=== PATIENT | female | born 1995 | race Caucasian/White ===

== ENCOUNTER 2024-12-03 08:55 | Outpatient (AMB) | payer MEDICAID, SELFPAY ==
--- NOTE | 2024-12-03 09:26 | AMB.OBINITIA ---
Vital Signs 12/03/24 09:58 Height 1.55 m Height Method Stated Weight 92.76 kg Weight Measurement Method Standing Scale BMI 38.6 BP 110/67 Blood Pressure Source Automatic Cuff Blood Pressure Location Left Upper Arm Position Sitting Respiration 16 Pulse 80 Pulse Source Monitor Temp 98 F Temp Source Oral Pulse Oximetry (%) 96 Oxygen Delivery Method Room Air Allergies/Home Meds Allergies & Medications Allergies No Known Allergies Allergy (Verified 12/03/24 09:59) Medication Reconciliation No Known Home Medications 12/03/24 [History Confirmed 12/03/24] Intake Visit Data Collection New Patient or Established: New Patient (never been to [facility]) Reason for Visit:: INITIAL CARE Seen by Clinical Staff ONLY (RN/MA): No Overcoil Stepper Required: No Do You Feel Safe at Home: Yes Authorities Contacted: N/A PCP or OBGYN visit in last 3 months: Yes Hx Now: Yes Are you currently on any form of Control: No Last menstrual period: 05/10/24 Pain Present Currently: No Pain Scale Used: Germain-Pérez/Numerical Pain scale:: 0 Smoking Status Smoking Status: Never smoker Questionnaires Covid-19 Vaccine Questionnaire Has patient been vacinated for Covid-19 Have you been vacinated for Covid-19: No PHQ-9 PHQ-2 Over the last 2 weeks, how often have you been bothered by any of the following problems? 1. Little interest or pleasure in doing things: not at all 2. Feeling down, depressed, or hopeless: not at all Total score: 0 PHQ-9 3. Trouble falling or staying asleep, or sleeping too much: Not at all 4. Feeling tired or having little energy: Not at all 5. Poor appetite or overeating: Not at all 6. Feeling bad about yourself - or that you are a failure or have let yourself or your family down: Not at all 7. Trouble concentrating on things, such as reading the newspaper or watching television: Not at all 8. Moving or speaking so slowly that other people could have noticed? - Or the opposite - being so fidgety or restless that you have been moving around a lot more than usual: not at all 9. Thoughts that you would be better off or of hurting yourself in some way: Not at all Total score: 0 Source: Developed by Drs. Shamir White, Anahi Roque, Lito Yu and colleagues, with an educational annabel from [employer]. Depression screen completed yes Social History Living Situation History Marital Status: Lives With: Family Housing: House Tobacco History Smoking Status: Never smoker Second Hand Smoke Exposure: No Alcohol History Alcohol Intake: Never Domestic Abuse History Do You Feel Safe at Home: Yes History of Present Illness HPI Narrative 29-year-old 3 para 2 for OBI. Patient is a transfer from [facility] in [place]. Last. Was May 10, 2024. Estimated due date based on LMP . Patient's only problem the so far was a UTI. She was treated with Macrobid. Patient denies social habits. Denies bleeding. Denies chronic illness. Patient reports that her labs have been normal. They did not do a 1 hour yet. GC and Chlamydia were negative. Her HIV was negative and RPR negative. OB Initial Visit OB Flowsheet OB Flowsheet Initial Weight: Not Recorded Date <del>?</del> EGA Weight BP Alb Glu CTX Pres Fundal ht FHR Mov Dilation Station Effacement Hx Notes Visit Note 12/03/24 <del>?</del> 29w 4d 92.76 kg 110/67 absent unknown 29 134 active 29-year-old 3 para 2 for OBI. She brought partial records. Last period was May 10, 2024. An estimated due date based on that February 15, 2025. Patient reports movement. Denies bleeding, leaking, contractions. Treated for UTI with . Patient declined Tdap Schedule MFM appointment for anatomy scan. 1 hour glucose with OB panel today. Discussed labor precautions. Continue prenatals. Patient needs NIPT and carrier screens at her next visit Menstrual History Menstrual reliability: definite Flow: normal Menstrual regularity: regular Monthly: Yes Age at menarche: 12 On control pills at conception: No Associated symptoms (LMP): Reports fatigue and breast tenderness OB History : 3 Para: 2 # of Living Children: 2 Delivery History 1st : Child's name: BATOOL date: 06/23/14 sex: male Gestational age at delivery (weeks): 41 Delivery type: vaginal Delivery complications: NONE History of depression before or after : No 2nd : Child's name: CASSANDRA date: 07/30/20 sex: female Gestational age at delivery (weeks): 40 Delivery type: vaginal Delivery complications: NONE History of depression before or after : No Infection History & Risk Evaluation History of STDs: none Genetic Screening & History Genetic Screening/Teratology Counseling - Includes patient, baby's father, or anyone in either family with: 1. Patient's age 35 years or older as of estimated date of delivery: No 2. Thalassemia (Barbadian, Wolof, Mediterranean, or Background); MCV less than 80: No 3. Neural Tube Defect (Meningomyelocele, Spina Bifida, or Anencephaly): No 4. Congenital Heart Defect: No 5. Down Syndrome: No 6. Cameron-Sachs (Ashkenazi Pentecostal, Cajun, Telugu [place]): No 7. Aguilar Disease (Ashkenazi Pentecostal): No 8. Familial Dysautonomia (Ashkenazi Pentecostal): No 9. Sickle Cell Disease or Trait (): No 10. Hemophilia or other blood disorders: No 11. Muscular Dystrophy: No 12. Cystic Fibrosis: No 13. [place]'s Chorea: No 14. Mental Retardation/Autism: No 15. Other inherited genetic or chromosomal disorder: No 16. Maternal Metabolic Disorder (EG,TYPE 1 Diabetes, PKU): No 17. Patient or baby's father had a child with defects not listed above: No 18. Recurrent loss or a stillbirth: No 19. Medications (including supplements, vitamins, herbs or otc drugs)/illicit/recreational drugs/alcohol since last menstrual period: No 20. Any other: No Infection History 1. Live with someone with TB or exposed to TB: No 2. Rash or viral illness since last menstrual period: No 3. Hepatitis B,C: No Other (see comments) Source: [employer] Review of Systems Review of Systems Systems Reviewed: All systems reviewed, normal except as documented Constitutional Constitutional: Reports fatigue Endocrine Endocrine: Reports fatigue Exam General Limitations: no limitations General Appearance: alert, in no apparent distress, comfortable, cooperative, healthy appearing, well developed and well groomed Head Head exam: atraumatic, normocephalic and normal inspection Chest Chest inspection: Present normal inspection and symmetric chest wall rise Resp Respiratory exam: Present normal lung sounds bilaterally Card Cardiovascular exam: Present regular rate, normal rhythm and normal heart sounds Abdominal Abdominal exam: Present soft and normal bowel sounds Psych Psychiatric exam: Present normal affect and normal mood Office Procedures OB Clinic LOC & Office Proc's Nursing/Assessment Patient Status: Established Patient OB Clinic Nursing Assessment: Medication Reconciliation, Update PMH in EMR and Vital Signs OB Clinic Coordination of Care: Complex Care and Chronic Disease 1-5, Consent,records obtained, informed consent, Education Simp Pt/Fam, Lab and Imaging orders, Results/Orders obtained and Staff clarify orders Special Needs: Heart tones Established Patient Charge Established Patient Point Assignment: 135 Established Patient Point Charge: EP Level 4 (120-155) Assessment & Plan Diagnosis / Problem List (1) High-risk : Status: Acute Qualifiers: Trimester: third trimester Qualified Code(s): O09.93 - Supervision of high risk , unspecified, third trimester (2) Encounter for supervision of high risk in third trimester, antepartum: Status: Acute Plan OB panel with 1 hour GTT. Schedule [facility] ultrasound for anatomy scan. Discussed labor precautions. I offered Tdap, patient declined. Continue vitamins. Increase fluids return in 2 to 3 weeks OB check Additional Plan Follow Up: 3 Weeks (obc)
[2024-12-03 09:58] VITALS: BP 110/67; PULSE 80; RESP 16; TEMP 36.6; O2SAT 96; BMI 38.6
== END 2024-12-03 10:14 | disposition home or self-care (01) ==
LOC: HODSOBC 08:55
PROVIDERS: Supervising Provider Advanced Practice Midwife; Visit Provider Advanced Practice Midwife
DX: O09.93 Supervision of high risk pregnancy, unspecified, third trimester (principal); Z3A.29 29 weeks gestation of pregnancy
CPT/HCPCS: 99214; G0463

== ENCOUNTER 2024-12-21 15:17 | Outpatient (AMB) | payer MEDICAID, SELFPAY ==
[2024-12-21 15:42] VITALS: BP 104/69; PULSE 99; RESP 18; TEMP 36.7; O2SAT 98; BMI 39.1
--- NOTE | 2024-12-21 15:42 | AMB.OBVISIT ---
Vital Signs 12/21/24 15:42 Height 1.55 m Height Method Stated Weight 94.064 kg Weight Measurement Method Standing Scale BMI 39.1 BP 104/69 Blood Pressure Source Automatic Cuff Blood Pressure Location Left Upper Arm Position Sitting Respiration 18 Pulse 99 Pulse Source Monitor Temp 98.0 F Temp Source Oral Pulse Oximetry (%) 98 Oxygen Delivery Method Room Air Allergies/Home Meds Allergies & Medications Allergies No Known Allergies Allergy (Verified 12/21/24 15:44) Medication Reconciliation No Known Home Medications 12/03/24 [History Confirmed 12/21/24] Intake Visit Data Collection New Patient or Established: Established Patient (seen at [facility] within 3 years) Reason for Visit:: CARE Seen by Clinical Staff ONLY (RN/MA): No Six Sigma Black Belt Engineer Required: No Do You Feel Safe at Home: Yes Authorities Contacted: N/A PCP or OBGYN visit in last 3 months: Yes Hx Now: Yes Are you currently on any form of Control: No Pain Present Currently: No Pain Scale Used: Germain-Pérez/Numerical Pain scale:: 0 Smoking Status Smoking Status: Never smoker Questionnaires Covid-19 Vaccine Questionnaire Has patient been vacinated for Covid-19 Have you been vacinated for Covid-19: Yes PHQ-9 PHQ-2 Over the last 2 weeks, how often have you been bothered by any of the following problems? 1. Little interest or pleasure in doing things: not at all 2. Feeling down, depressed, or hopeless: not at all Total score: 0 PHQ-9 3. Trouble falling or staying asleep, or sleeping too much: Not at all 4. Feeling tired or having little energy: Not at all 5. Poor appetite or overeating: Not at all 6. Feeling bad about yourself - or that you are a failure or have let yourself or your family down: Not at all 7. Trouble concentrating on things, such as reading the newspaper or watching television: Not at all 8. Moving or speaking so slowly that other people could have noticed? - Or the opposite - being so fidgety or restless that you have been moving around a lot more than usual: not at all 9. Thoughts that you would be better off or of hurting yourself in some way: Not at all Total score: 0 Source: Developed by Drs. Shamir White, Anahi Roque, Lito Yu and colleagues, with an educational annabel from [employer]. Depression screen completed yes Social History Living Situation History Lives With: Family Housing: House Tobacco History Smoking Status: Never smoker Second Hand Smoke Exposure: No Alcohol History Alcohol Intake: Never Domestic Abuse History Do You Feel Safe at Home: Yes Care OB Visit Log OB Flowsheet Initial Weight: Not Recorded Date <del>?</del> EGA Weight BP Alb Glu CTX Pres Fundal ht FHR Mov Dilation Station Effacement Hx Notes Visit Note 12/03/24 <del>?</del> 29w 4d 92.76 kg 110/67 absent unknown 29 134 active 29-year-old 3 para 2 for OBI. She brought partial records. Last period was May 10, 2024. An estimated due date based on that February 15, 2025. Patient reports movement. Denies bleeding, leaking, contractions. Treated for UTI with . Patient declined Tdap Schedule MFM appointment for anatomy scan. 1 hour glucose with OB panel today. Discussed labor precautions. Continue prenatals. Patient needs NIPT and carrier screens at her next visit 12/21/24 <del>?</del> 32w 1d 94.064 kg 104/69 absent cephalic 32 145 active Reports good movement. Denies leaking, bleeding, contractions. Patient has her MFM appointment scheduled for December 29. Tdap today. Discussed labor precautions. Discussed diet and weight. Increase fluids. Keep maternal- medicine sono appointment for December 29. Return in 2 weeks OB check, 3 hr gtt VIVIAN Calculator Estimated Delivery Date Method Current WG Current Estimate 02/14/25 LMP (Certain) 32w 1d Notes Visit Date: 12/21/24 Last Updated by: Lydia Couch CNM 1 hr gtt: 143, HBSAG: -, HCV-, HIV-, GC/CT-, AB+. abs-, RPR::NR, RUB NI< /268A1: 5.4 Visit Date: 12/03/24 Last Updated by: Lydia Couch CNM 29 yo . LMP; 05/10/24. EDC: 02/15/25 Office Procedures OB Clinic LOC & Office Proc's Nursing/Assessment Patient Status: Established Patient OB Clinic Nursing Assessment: Medication Reconciliation, Update PMH in EMR and Vital Signs OB Clinic Coordination of Care: Complex Care and Chronic Disease 1-5, Consent,records obtained, informed consent, Education Simp Pt/Fam, 1 Ins Authorization, Lab and Imaging orders, Results/Orders obtained and Staff clarify orders Special Needs: Heart tones Established Patient Charge Established Patient Point Assignment: 150 Established Patient Point Charge: EP Level 4 (120-155) Immunizations diphth,pertus(acell),tetanus 2.5 Lf unit-8 mcg-5 Lf/0.5mL IM syringe Performing Provider: Lydia Couch CNM Performing Location: [facility] Administered by: Acacia Egan MA on 12/21/24 16:24 Dose Route Admin Location Dispensed Lot Number Expiration Date Package NDC NDC Aircraft Maintenance Supervisor 0.5 mL IM Left Deltoid 0.5 mL [id number] 02/04/27 53605-707-56 [id number] [employer] VIS Given Date VIS Provided VIS Publication Date 12/21/24 Single Vaccine 24 Eligibility Eligibility Date Funding Source Public Non-[facility] Assessment & Plan Diagnosis / Problem List (1) Encounter for supervision of high risk in third trimester, antepartum: Status: Acute Plan Tdap today. Schedule 3-hour GTT. Discussed diet and weight. Increase exercise. Discussed labor precautions. [facility] appointment December 29. Increase fluids. Return in 2 weeks OB check Additional Plan Follow Up: 2 Weeks (obc)
== END 2024-12-21 16:19 | disposition home or self-care (01) ==
LOC: HODSOBC 15:17
PROVIDERS: Supervising Provider Advanced Practice Midwife; Visit Provider Advanced Practice Midwife
DX: O09.93 Supervision of high risk pregnancy, unspecified, third trimester (principal); Z3A.32 32 weeks gestation of pregnancy; Z23 Encounter for immunization
CPT/HCPCS: 90471; 90715; 99214; G0463

== ENCOUNTER 2024-12-29 16:49 | Observation (INO) | payer MEDICAID, SELFPAY ==
[2024-12-29] VITALS (64 sets, daily range): BP systolic 111–114; BP diastolic 55–69; PULSE 87–117; RESP 16–100; TEMP 36.8–36.9; O2SAT 90–100; BMI 39.2
[2024-12-29] MEDS: BETAMET ACET/BETAMET NA PH (Celestone) 6 MG/ML VIAL 12 MG IM (17:32)
[2024-12-29] MEDS: RINGERS LACTATED 1000 ML 1,000 ML 999 ML IV (17:33)
[2024-12-29] MEDS: RINGERS LACTATED 1000 ML 1,000 ML 125 ML IV (18:39)
[2024-12-30] VITALS (157 sets, daily range): BP systolic 99–191; BP diastolic 54–88; PULSE 82–230; RESP 18; TEMP 36.8–36.9; O2SAT 93–100
--- NOTE | 2024-12-30 06:30 | XR_ITS ---
Examination: age Limited TECHNIQUE: Limited transabdominal sonographic images pelvis Date and time: December 30, 2024, 0753 hours INDICATIONS: Leaking amniotic fluid today. FINDINGS: Amniotic fluid index 10.0 cm Cardiac motion 124 BPM IMPRESSION: Amniotic fluid index 10.0 cm
[2024-12-30] MEDS: BETAMET ACET/BETAMET NA PH (Celestone) 6 MG/ML VIAL 12 MG IM (11:02)
--- NOTE | 2024-12-30 12:36 | PD.LDPN ---
Documentation for date of: 12/30/24 OB Labor Progress Note Pain Control Comments: Patient admitted from [facility] for low DIMA for kept overnight given IV fluids repeat DIMA 10. Patient ready to go home. Given betamethasone zone x 2. She is 33 2/7 weeks Pelvic Exam Amniotic membrane status: Intact Contractions Monitor mode: External Contraction frequency: none Contraction intensity: Mild Status status: Category l Assessment and Plan Comments: Patient admitted for borderline DIMA. IV fluids given. DIMA is 10. Discharge home at this time.
--- NOTE | 2024-12-30 12:37 | ESDS_ITS ---
DS: Providers Provider Date of admission: 12/29/24 16:49 Primary care physician: Physician No Primary/Family Admitting Provider: Miguel Royal MD Attending Provider on Admission: Miguel Royal MD Attending Provider on DC: Bhavani Rod MD (OB Clinic) Discharging Provider: Bhavani Rod MD (OB Clinic) Anticipated date of discharge: 12/30/24 DS: Diagnosis Discharge Diagnosis (1) Encounter for supervision of high risk in third trimester, antepartum: Status: Acute Assessment & Plan: Admitted at 33-2/7 weeks for low DIMA. Given IV fluids and betamethasone x 2. Discharged home after admitting the patient for observation for proximately 24 hours. Follow-up with Lydia next week in the clinic. (2) Oligohydramnios antepartum: Status: Acute Assessment & Plan: DIMA improved from 4 to 10 after IV hydration.. Problem List Completed Was Problem List Reviewed/Reconciled?: Yes Summary/Hosp Course Brief History: Patient is a 29-year-old G3, P2 admitted from the [facility] office for borderline oligohydramnios at 33-2/7 weeks.. She was admitted by Dr. Royal. Please see history and physical for further details. She was kept overnight and given IV fluids. She had betamethasone x 2 given. A repeat ultrasound revealed an DIMA of 10. Patient was discharged home hospital day #1 in stable condition. Status at Discharge Functional status at discharge: independent ambulation Overall status at discharge: patient is back to baseline Time Spent with Patient Time attestation: Total time spent providing and/or coordinating discharge services: Time spent: Less than 30 minutes Specific discharge activities: Activity as tolerated. Follow-up with Lydia on Saturday for a routine OB appointment. Exam Vital Signs Temp Pulse Resp BP Pulse Ox O2 Del Method 98.2 F 96 18 105/54 L 99 Room Air 12/30/24 07:19 12/30/24 12:10 12/30/24 04:10 12/30/24 12:10 12/30/24 12:23 12/30/24 04:10 Narrative Exam Patient is alert oriented x 3 in no apparent distress fundus is firm fundal height is large approximately measuring 36 weeks. Nontender. Extremities show no significant edema or erythema. Discharge Plan Plan Patient Disposition: HOME (Self Care) Disposition Comment: Stable Prescriptions/Referrals Prescriptions/Med Rec: No Action No Known Home Medications Referrals: No Primary/Family,Physician [Primary Care Provider] Patient/Caregiver Discharge Instructions Discharge Activity: activity as tolerated Other Discharge Activity Instructions:: Return to clinic to see Lydia next week. Other Discharge Diet Instructions: Regular diet. Push oral fluids. Education Materials: Oligohydramnios Print Language: Indonesian Activity Restrictions/Additional Instructions: Activity as tolerated. Stand Alone Forms: [employer] Award Info., Patient Portal Info Letter, Work/Release Restrictions Discharge Order Discharge Orders: Discharge (Routine); Ordered 12/30/24 Ordered By: Bhavani Rod (OB Clinic) Planned Discharge Date 12/30/24 (2) Oligohydramnios antepartum Qualifiers: Fetus number: single or unspecified fetus Qualified Code(s): O41.00X0 - Oligohydramnios, unspecified trimester, not applicable or unspecified
== END 2024-12-30 12:53 | disposition home or self-care (01) ==
PROVIDERS: Admitting Provider Obstetrics & Gynecology; Visit Provider Obstetrics & Gynecology
DX: O09.93 Supervision of high risk pregnancy, unspecified, third trimester (principal); O41.03X0 Oligohydramnios, third trimester, not applicable or unspecified; Z3A.33 33 weeks gestation of pregnancy
CPT/HCPCS: 59025; 59899; 76815; 96372; J0702; J7120

== ENCOUNTER 2025-01-04 14:47 | Outpatient (AMB) | payer MEDICAID, SELFPAY ==
--- NOTE | 2025-01-04 15:33 | AMB.OBVISIT ---
Vital Signs 01/04/25 15:34 Height 1.55 m Height Method Stated Weight 94.12 kg Weight Measurement Method Standing Scale BMI 39.2 BP 116/76 Blood Pressure Source Automatic Cuff Blood Pressure Location Left Upper Arm Position Sitting Respiration 18 Pulse 99 Pulse Source Monitor Temp 98 F Temp Source Oral Pulse Oximetry (%) 96 Oxygen Delivery Method Room Air Allergies/Home Meds Allergies & Medications Allergies No Known Allergies Allergy (Verified 01/04/25 15:34) Medication Reconciliation No Known Home Medications 12/03/24 [History Confirmed 01/04/25] Intake Visit Data Collection New Patient or Established: Established Patient (seen at [facility] within 3 years) Reason for Visit:: CARE Seen by Clinical Staff ONLY (RN/MA): No Weblogic Administrator Required: No Do You Feel Safe at Home: Yes Authorities Contacted: N/A PCP or OBGYN visit in last 3 months: Yes Hx Now: Yes Are you currently on any form of Control: No Pain Present Currently: No Pain Scale Used: Germain-Pérez/Numerical Pain scale:: 0 Smoking Status Smoking Status: Never smoker Questionnaires Covid-19 Vaccine Questionnaire Has patient been vacinated for Covid-19 Have you been vacinated for Covid-19: Yes PHQ-9 PHQ-2 Over the last 2 weeks, how often have you been bothered by any of the following problems? 1. Little interest or pleasure in doing things: not at all 2. Feeling down, depressed, or hopeless: not at all Total score: 0 PHQ-9 3. Trouble falling or staying asleep, or sleeping too much: Not at all 4. Feeling tired or having little energy: Not at all 5. Poor appetite or overeating: Not at all 6. Feeling bad about yourself - or that you are a failure or have let yourself or your family down: Not at all 7. Trouble concentrating on things, such as reading the newspaper or watching television: Not at all 8. Moving or speaking so slowly that other people could have noticed? - Or the opposite - being so fidgety or restless that you have been moving around a lot more than usual: not at all 9. Thoughts that you would be better off or of hurting yourself in some way: Not at all Total score: 0 Source: Developed by Drs. Shamir L. Anahi White Kurt Kroenke and colleagues, with an educational annabel from [employer]. Depression screen completed yes Social History Living Situation History Lives With: Family Housing: House Tobacco History Smoking Status: Never smoker Second Hand Smoke Exposure: No Alcohol History Alcohol Intake: Never Domestic Abuse History Do You Feel Safe at Home: Yes Care OB Visit Log OB Flowsheet Initial Weight: Not Recorded Date <del>?</del> EGA Weight BP Alb Glu CTX Pres Fundal ht FHR Mov Dilation Station Effacement Hx Notes Visit Note 12/03/24 <del>?</del> 29w 4d 92.76 kg 110/67 absent unknown 29 134 active 29-year-old 3 para 2 for OBI. She brought partial records. Last period was May 10, 2024. An estimated due date based on that February 15, 2025. Patient reports movement. Denies bleeding, leaking, contractions. Treated for UTI with . Patient declined Tdap Schedule MFM appointment for anatomy scan. 1 hour glucose with OB panel today. Discussed labor precautions. Continue prenatals. Patient needs NIPT and carrier screens at her next visit 12/21/24 <del>?</del> 32w 1d 94.064 kg 104/69 absent cephalic 32 145 active Reports good movement. Denies leaking, bleeding, contractions. Patient has her MFM appointment scheduled for December 29. Tdap today. Discussed labor precautions. Discussed diet and weight. Increase fluids. Keep maternal- medicine sono appointment for December 29. Return in 2 weeks OB check, 3 hr gtt 01/04/25 <del>?</del> 34w 1d 94.12 kg 116/76 occasional cephalic 34 145 active Reports good movement. Denies labor complaints. Denies leaking, bleeding, contractions. Discussed ultrasound findings with patient. Patient will go tomorrow to repeat 3-hour GTT. Patient scheduled for repeat NST BPP tomorrow. Discussed labor precautions. Discussed kick count and activity. Discussed dates. Patient will return in a week for GBS. VIVIAN Calculator Estimated Delivery Date Method Current WG Current Estimate 02/14/25 LMP (Certain) 34w 1d Other Estimates 02/14/25 Ultrasound #1 34w 1d 02/14/25 Manual 34w 1d final vivian Notes Visit Date: 01/04/25 Last Updated by: Lydia Couch CNM [facility] sono12/29/24: IUP: 33w2.DIMA; 4.3. EFW: 96%. f/u sono 12/30: after IV hydration: DIMA:10 NIPT: neg/male Visit Date: 12/21/24 Last Updated by: Lydia Couch CNM 1 hr gtt: 143, HBSAG: -, HCV-, HIV-, GC/CT-, AB+. abs-, RPR::NR, RUB NI< /268A1: 5.4 Visit Date: 12/03/24 Last Updated by: Lydia Couch CNM 29 yo . LMP; 05/10/24. EDC: 02/15/25 Office Procedures OBC Clinic LOC & Office Proc's Nursing/Assessment Patient Status: Established Patient OB Clinic Nursing Assessment: Medication Reconciliation, Update PMH in EMR and Vital Signs OB Clinic Coordination of Care: Complex Care and Chronic Disease 1-5, Consent,records obtained, informed consent, Education Simp Pt/Fam, Lab and Imaging orders, Results/Orders obtained and Staff clarify orders Special Needs: Heart tones Established Patient Charge Established Patient Point Assignment: 135 Established Patient Point Charge: EP Level 4 (120-155) Assessment & Plan Diagnosis / Problem List (1) Oligohydramnios antepartum: Status: Acute Qualifiers: Fetus number: single or unspecified fetus Qualified Code(s): O41.00X0 - Oligohydramnios, unspecified trimester, not applicable or unspecified (2) Encounter for supervision of high risk in third trimester, antepartum: Status: Acute Plan Discussed dates. Discussed sono. Schedule weekly NST BPP for low DIMA. And discussed danger signs and symptoms and the ER precautions. Increase fluids. Rest on side. Patient will do 3-hour GTT. Return in a week for OB check and GBS. Repeat NST BPP in a.m. Additional Plan Follow Up: 1 Week (obc)
[2025-01-04 15:34] VITALS: BP 116/76; PULSE 99; RESP 18; TEMP 36.6; O2SAT 96; BMI 39.2
== END 2025-01-04 16:09 | disposition home or self-care (01) ==
PROVIDERS: Supervising Provider Advanced Practice Midwife; Visit Provider Advanced Practice Midwife
DX: O09.893 Supervision of other high risk pregnancies, third trimester (principal); O41.03X0 Oligohydramnios, third trimester, not applicable or unspecified; Z3A.34 34 weeks gestation of pregnancy
CPT/HCPCS: 99214; G0463

== ENCOUNTER 2025-01-05 15:45 | Observation (INO) | payer MEDICAID, SELFPAY ==
[2025-01-05] VITALS (11 sets, daily range): BP systolic 110–124; BP diastolic 61–66; PULSE 93–110; RESP 16–99; TEMP 36.6–36.9; O2SAT 98–99; BMI 39.2
--- NOTE | 2025-01-05 15:04 | XR_ITS ---
Examination: Biophysical profile, ultrasound Date and time of exam: January 05, 2025, 1523 hours INDICATIONS: Low amniotic fluid in the doctor's office today on ultrasound examination Technique: Multiple transabdominal sonographic images of the pelvis abdomen obtained. Attention is directed to the breathing movement, gross body movement, amniotic fluid volume and tone. Findings: Amniotic fluid index 3.3 cm Total biophysical profile is 6 of 8. breathing movement is 2. Gross body movement is 2. tone is 2. Qualitative amniotic fluid volume is 0 Impression: Biophysical profile is 6 of 8.
[2025-01-05 16:14] LABS: ROM Kit Exp Date# 01/18/28; ROM Kit Lot # 58104371; ROM Swab Mixed By: LAUTH; Rupture of Fetal Membranes Negative (Negative); Swb Mxed in Solvent 1 min? Yes
[2025-01-05] MEDS: RINGERS LACTATED 1000 ML 1,000 ML 999 ML IV (16:47)
[2025-01-05 17:26] LABS: Basophils # (Auto) 0.0 Thou/mm3 (0.0-0.2); Basophils % (Auto) 0 % (0-2.5); Eosinophils # (Auto) 0.0 Thou/mm3 (0.0-0.5); Eosinophils % (Auto) 0 % (0-10); Hematocrit 34.2 % (36.0-46.0); Hemoglobin 11.7 g/dL (12.0-16.0); Immature Granulocytes Auto 0.07 Thou/mm3 (0.00-0.00); Lymphocytes # (Auto) 2.6 Thou/mm3 (1.0-4.8); Lymphocytes % (Auto) 22 % (10-50); Mean Corpuscular HGB Conc 34.2 g/dl (31.0-37.0); Mean Corpuscular Hemoglobin 28.1 pg (25.0-35.0); Mean Corpuscular Volume 82 fL (80-100); Monocytes # (Auto) 1.1 Thou/mm3 (0.0-0.8); Monocytes % (Auto) 10 % (0-12); Neutrophils # (Auto) 7.7 Thou/mm3 (1.8-7.7); Neutrophils % (Auto) 67 % (37-80); Nucleated Red Blood Cell # 0.00 Thou/mm3 (0.00-0.00); Nucleated Red Blood Cell % 0 /100 WBC (0); Platelet Count 299 Thou/mm3 (140-440); RDW Standard Deviation 39.3 fL (36.4-46.3); Red Blood Count 4.16 Miln/mm3 (4.00-5.20); White Blood Count 11.5 Thou/mm3 (3.6-11.0)
[2025-01-05 18:02] LABS: Syphilis Nonreactive (Nonreactive)
--- NOTE | 2025-01-05 18:17 | PD.LDANTE ---
Documentation for date of: 01/05/25 OB Labor/Induct. HPI History of Present Illness Chief complaint: follow up on low DIMA : 3 Para: 2 Term pregnancies: 2 Living children: 2 History of Abortions: Spontaneous and Elective: 0 History of Vaginal deliveries: 2 History of sections: No History of : No VIVIAN: 02/14/25 History of present illness: 29 years old here for follow up on low DIMA last week received iv fluids last week and DIMA improved from 4 to 10 and she also has received 2 doses of betamethasone . Today DIMA is lower at 3 .2 / Amniosure is negative . Patient is 34.2 weeks . Plan iv hydration and repeat DIMA in morning and then decide on further management / Patient also prefers to wait . She did not see an MFM after her discharge / Her one hour glucose is elevated , but 3 hour was not done as patient had nausea and vomiting during the test . The baby is by Leopolds almost 36 weeks NST is reactive History of Present Adequate Care: Yes Ultrasounds: abnormal US findings Abnormal ultrasound findings: low DIMA Medical complications: none Labs Narrative: Patient in observation for low DIMA and IV fluids and will repeat DIMA in the morning. Patient is 34.2weeks by dates Review of Systems Review of Systems Systems Reviewed: All systems reviewed, normal except as documented Past Medical History Surgical History SURGICAL: Negative Section Meds Home Medications and Allergies Home Medications ?Medication ?Instructions ?Recorded ?Confirmed ?Type vit no.95-ferrous tab PO 01/05/25 History fumarate 28 mg-folic acid 800 mcg tablet () Allergies Allergy/AdvReac Type Severity Reaction Status Date / Time No Known Allergies Allergy Verified 01/05/25 15:40 OB Exam Physical Exam Vital signs: Temp Pulse Resp BP Pulse Ox O2 Del Method 98.5 F 98 18 121/66 98 Room Air 01/05/25 16:49 01/05/25 17:23 01/05/25 16:49 01/05/25 17:23 01/05/25 15:16 01/05/25 16:49 Narrative: Size about 36 weeks / slightly larger than dates NST reactive, no uterine contractions, nontender abdomen, vertex presentation, pelvic exam deferred. Constitutional Constitutional: no acute distress Routine Respiratory Exam Respiratory: Present CTA bilaterally Routine Cardiovascular Exam Cardiovascular: Present RRR Routine Extremities Exam Extremities: Present full ROM, pulses intact and normal capillary refill Routine Skin Exam Skin: Present intact Routine Neurological Exam Neurological: Present alert, oriented X3, normal reflexes, vision grossly intact, hearing grossly intact and normal speech Routine Psychiatric Exam Psychiatric: Present normal affect, normal thought process, cooperative and good judgment OB Results Labs 01/05/25 16:34 Labs: Short CBC 01/05/25 Range/Units 16:34 WBC 11.5 H (3.6-11.0) Thou/mm3 Hgb 11.7 L (12.0-16.0) g/dL Hct 34.2 L (36.0-46.0) % Plt Count 299 (140-440) Thou/mm3 OB Assessment & Plan Assessment and Plan (1) Oligohydramnios antepartum: Status: Acute (2) Encounter for supervision of high risk in third trimester, antepartum: Status: Acute (3) High-risk : Status: Acute (4) 34 weeks gestation of : Status: Acute Additional Plan Induction method: other Additional Plan Comment: IIV fluids and repeat DIMA in the morning and then deciding further management . If DIMA stays low then induction / if improves close monitoring / Induction decision after MFM consultation (1) Oligohydramnios antepartum Qualifiers: Fetus number: single or unspecified fetus Qualified Code(s): O41.00X0 - Oligohydramnios, unspecified trimester, not applicable or unspecified (3) High-risk Qualifiers: Trimester: third trimester Qualified Code(s): O09.93 - Supervision of high risk , unspecified, third trimester
[2025-01-06] MEDS: RINGERS LACTATED 1000 ML 1,000 ML 125 ML IV ×2 (01:07→08:38)
[2025-01-06 03:45] VITALS: RESP 16; TEMP 36.8
[2025-01-06 03:47] VITALS: BP 103/53; PULSE 98
--- NOTE | 2025-01-06 07:35 | XR_ITS ---
Examination: age Limited TECHNIQUE: Limited transabdominal sonographic images pelvis Date and time: January 06 2025 0746 hours INDICATIONS: Low amniotic fluid index 3.3 cm on ultrasound 01/05/2025 FINDINGS: Amniotic fluid index 4.7 cm Cardiac motion 145 BPM IMPRESSION: Amniotic fluid index 4.7 cm
[2025-01-06 08:00] VITALS: RESP 18; TEMP 36.9
[2025-01-06 08:04] VITALS: BP 116/67; PULSE 95
--- NOTE | 2025-01-06 10:10 | PD.LDPN ---
Documentation for date of: 01/06/25 OB Labor Progress Note Pain Control Pain control: tolerating well Comments: Patient came in for low DIMA. Repeat DIMA this morning 4.7. Plan will be to discharge patient home. Pelvic Exam Amniotic membrane status: Intact Contractions Monitor mode: External Contraction frequency: 0 Status status: Category l Assessment and Plan Comments: Discharge patient home for NST BPP on Saturday kick counts given.
--- NOTE | 2025-01-06 10:12 | PD.LDPPPRG ---
Subjective Subjective Interval history: Patient is a 29-year-old -0-0-2 admitted with a low DIMA of. She is 34-2/7 weeks. Her repeat DIMA this morning was 4.8. She will be discharged home to follow-up Saturday for another nonstress test biophysical profile. She has had steroids. Exam Vital Signs Temp Pulse Resp BP Pulse Ox O2 Del Method 98.2 F 95 16 116/67 98 Room Air 01/06/25 03:45 01/06/25 08:04 01/06/25 03:45 01/06/25 08:04 01/05/25 15:16 01/05/25 16:49 Narrative Exam [employer], NT Constitutional Constitutional: no acute distress Comments: Patient is resting comfortably in no distress. Objective Labs 01/05/25 16:34 Labs: Laboratory Results - last 24 hr 01/05/25 01/05/25 15:56 16:34 WBC 11.5 H RBC 4.16 Hgb 11.7 L Hct 34.2 L MCV 82 MCH 28.1 MCHC 34.2 RDW Std Deviation 39.3 Plt Count 299 Neut % (Auto) 67 Lymph % (Auto) 22 [place] % (Auto) 10 Eos % (Auto) 0 Baso % (Auto) 0 Neut # (Auto) 7.7 Lymph # (Auto) 2.6 [place] # (Auto) 1.1 H Eos # (Auto) 0.0 Baso # (Auto) 0.0 Immature Gran # (Auto) 0.07 H Absolute Nucleated RBC 0.00 Immature Gran % 1 H Nucleated RBC % 0 Membrane Rupture Negative Syphilis Serology Nonreactive Blood Type AB Positive Antibody Screen NEGATIVE Blood Bank Wristband ID Yes Assessment & Plan Problem List (1) Oligohydramnios antepartum: Problem details: Repeat ultrasound performed and DIMA up to 4.8. Kick counts reviewed with patient. Follow-up Saturday for another NST and DIMA. Status: Acute (2) Encounter for supervision of high risk in third trimester, antepartum: Status: Acute (3) High-risk : Status: Acute (4) 34 weeks gestation of : Status: Acute Time Spent With Patient Time: Total time spent is greater than 50% in coordination of care (as documented) at patient's floor/unit and/or counseling patient: Time with patient: less than 15 minutes
--- NOTE | 2025-01-06 10:15 | PD.LDDS ---
DS: Providers Provider Date of admission: 01/05/25 15:45 Primary care physician: Physician No Primary/Family Admitting Provider: Katelyn Cain MD Attending Provider on Admission: Katelyn Cain MD Attending Provider on DC: Bhavani Rod MD ([facility]) Discharging Provider: Bhavani Rod MD ([facility]) Anticipated date of discharge: 01/06/25 DS: Diagnosis Discharge Diagnosis (1) 34 weeks gestation of : Status: Acute (2) Oligohydramnios antepartum: Status: Acute Assessment & Plan: Repeat ultrasound performed DIMA 4.8. Problem List Completed Was Problem List Reviewed/Reconciled?: Yes Summary/Hosp Course Brief History: 29 years old here for follow up on low DIMA last week received iv fluids last week and DIMA improved from 4 to 10 and she also has received 2 doses of betamethasone . Today DIMA is lower at 3 .2 / Amniosure is negative . Patient is 34.2 weeks . Plan iv hydration and repeat DIMA in morning and then decide on further management / Patient also prefers to wait . She did not see an MFM after her discharge / Her one hour glucose is elevated , but 3 hour was not done as patient had nausea and vomiting during the test . The baby is by Le[place]olds almost 36 weeks NST is reactive patient admitted by Dr. Cain. Please see history and physical for further details. Patient was admitted overnight given IV fluids. NST has been reactive the entire time repeat DIMA 4.8. Discharged home after an overnight admission in stable condition. Follow-up Saturday for repeat NST T and DIMA. Status at Discharge Functional status at discharge: independent ambulation Overall status at discharge: patient is not back to baseline Time Spent with Patient Time attestation: Total time spent providing and/or coordinating discharge services: Time spent: Less than 30 minutes Specific discharge activities: Rest, kick counts, repeat DIMA Saturday. Exam Vital Signs Temp Pulse Resp BP Pulse Ox O2 Del Method 98.2 F 95 16 116/67 98 Room Air 01/06/25 03:45 01/06/25 08:04 01/06/25 03:45 01/06/25 08:04 01/05/25 15:16 01/05/25 16:49 The patient is alert and orient x 3 in no apparent distress fundus is firm nontender extremities show no significant edema or erythema Discharge Plan Plan Patient Disposition: HOME (Self Care) Disposition Comment: Stable Prescriptions/Referrals Prescriptions/Med Rec: No Action PNV no.95-ferrous fumarate-FA [] 28 mg iron- 800 mcg tablet 1 tab PO DAILY Referrals: No Primary/Family,Physician [Primary Care Provider] Patient/Caregiver Discharge Instructions Discharge Activity: activity as tolerated Other Discharge Activity Instructions:: Drink a lot of water and perform kick counts several times a day Other Discharge Diet Instructions: General diet as tolerated Education Materials: Kick Counts, Antepartum Discharge Print Language: Malawian Stand Alone Forms: [employer] Info., Patient Portal Info Letter, Work/Release Restrictions Discharge Order Discharge Orders: Discharge (Routine); Ordered 01/06/25 Ordered By: Bhavani Rod ([facility]) Planned Discharge Date 01/06/25 (2) Oligohydramnios antepartum Qualifiers: Fetus number: single or unspecified fetus Qualified Code(s): O41.00X0 - Oligohydramnios, unspecified trimester, not applicable or unspecified
== END 2025-01-06 10:30 | disposition home or self-care (01) ==
LOC: S4S1 16:23 → S4SX 16:23
PROVIDERS: Admitting Provider Obstetrics & Gynecology; Referring Provider Advanced Practice Midwife; Visit Provider Obstetrics & Gynecology
DX: O41.03X0 Oligohydramnios, third trimester, not applicable or unspecified (principal); O21.2 Late vomiting of pregnancy; O09.93 Supervision of high risk pregnancy, unspecified, third trimester; Z3A.34 34 weeks gestation of pregnancy
CPT/HCPCS: 36415; 59025; 59899; 76815; 76819; 84112; 85025; 86780; 86850; 86900; 86901; 96360; 96361; J7120

== ENCOUNTER 2025-01-08 10:00 | Outpatient (CLI) | payer MEDICAID, SELFPAY ==
[2025-01-08 10:00] VITALS: BP 122/74; PULSE 96; RESP 18; TEMP 36.6; BMI 39.2
--- NOTE | 2025-01-08 10:16 | XR_ITS ---
Examination: Biophysical profile, ultrasound Date and time of exam: January 08, 2025, 1033 hours INDICATIONS: History low amniotic fluid, 3.3 cm on 01/05/2025 Technique: Multiple transabdominal sonographic images of the pelvis abdomen obtained. Attention is directed to the breathing movement, gross body movement, amniotic fluid volume and tone. Findings: Amniotic fluid index 4.6 cm Total biophysical profile is 6 of 8. breathing movement is 2. Gross body movement is 2. tone is 2. Qualitative amniotic fluid volume is 0 Impression: Biophysical profile is 6 of 8.
== END 2025-01-08 11:05 | disposition home or self-care (01) ==
LOC: S4S1 10:00 → S4SX 10:01
PROVIDERS: Referring Provider Obstetrics & Gynecology; Visit Provider Obstetrics & Gynecology
DX: Z34.90 Encounter for supervision of normal pregnancy, unspecified, unspecified trimester (principal); Z36.9 Encounter for antenatal screening, unspecified; Z3A.00 Weeks of gestation of pregnancy not specified
CPT/HCPCS: 59025; 76819

== ENCOUNTER 2025-01-11 08:43 | Outpatient (CLI) | payer MEDICAID, SELFPAY ==
[2025-01-11 08:54] VITALS: BP 107/58; PULSE 93; RESP 16; RESP 98; TEMP 36.9; BMI 17.9
--- NOTE | 2025-01-11 08:56 | XR_ITS ---
Examination: age Limited TECHNIQUE: Limited transabdominal sonographic images pelvis Date and time: January 11, 2025, 0901 INDICATIONS: Low amniotic fluid on ultrasound study January 08, 2025, 4.6 cm FINDINGS: Viable intrauterine gestation cephalic presentation. Amniotic fluid index 7.2 cm Cardiac motion 155 BPM Estimated weight 2854 g Estimated age 36 weeks 2 days IMPRESSION: Viable intrauterine gestation cephalic presentation Amniotic fluid index 7.2 cm
--- NOTE | 2025-01-11 09:07 | XR_ITS ---
Examination: Biophysical profile, ultrasound Date and time of exam: January 11, 2025, 0909 hours INDICATIONS: History low amniotic fluid index 3.3 cm on 01/05/2025 Technique: Multiple transabdominal sonographic images of the pelvis abdomen obtained. Attention is directed to the breathing movement, gross body movement, amniotic fluid volume and tone. Findings: Amniotic fluid index 7.2 cm Total biophysical profile is 8 of 8. breathing movement is 2. Gross body movement is 2. tone is 2. Qualitative amniotic fluid volume is 2 Impression: Biophysical profile is 8 of 8.
[2025-01-11 09:48] VITALS: BP 107/58; PULSE 93
[2025-01-11 10:17] VITALS: BP 92/50; PULSE 102
[2025-01-11 10:21] VITALS: BP 101/57; PULSE 101
== END 2025-01-11 10:52 | disposition home or self-care (01) ==
LOC: S4S1 08:44 → S4SX 08:44
PROVIDERS: Referring Provider Advanced Practice Midwife; Visit Provider Advanced Practice Midwife
DX: Z34.83 Encounter for supervision of other normal pregnancy, third trimester (principal); Z36.89 Encounter for other specified antenatal screening; Z3A.35 35 weeks gestation of pregnancy
CPT/HCPCS: 59025; 76815; 76819

== ENCOUNTER 2025-01-12 09:39 | Outpatient (AMB) | payer MEDICAID, SELFPAY ==
--- NOTE | 2025-01-12 10:30 | OBCLNT_ITS ---
Vital Signs 01/12/25 10:38 Height 1.55 m Height Method Stated Weight 93.894 kg Weight Measurement Method Standing Scale BMI 39.1 BP 111/71 Blood Pressure Source Automatic Cuff Blood Pressure Location Left Upper Arm Position Sitting Respiration 18 Pulse 93 Pulse Source Monitor Temp 97.7 F Temp Source Oral Pulse Oximetry (%) 97 Oxygen Delivery Method Room Air Allergies/Home Meds Allergies & Medications Allergies No Known Allergies Allergy (Verified 01/12/25 10:39) Medication Reconciliation vit no.95-ferrous fumarate 28 mg-folic acid 800 mcg tablet () 1 tab PO DAILY 01/05/25 [History Confirmed 01/12/25] Intake Visit Data Collection New Patient or Established: Established Patient (seen at [facility] within 3 years) Reason for Visit:: CARE/ GBS DUE Seen by Clinical Staff ONLY (RN/MA): No Gunnery/Ordnance Officer Required: No Do You Feel Safe at Home: Yes Authorities Contacted: N/A PCP or OBGYN visit in last 3 months: Yes Hx Now: Yes Are you currently on any form of Control: No Pain Present Currently: No Pain Scale Used: Germain-Pérez/Numerical Pain scale:: 0 Smoking Status Smoking Status: Never smoker Questionnaires Covid-19 Vaccine Questionnaire Has patient been vacinated for Covid-19 Have you been vacinated for Covid-19: No PHQ-9 PHQ-2 Over the last 2 weeks, how often have you been bothered by any of the following problems? 1. Little interest or pleasure in doing things: not at all 2. Feeling down, depressed, or hopeless: not at all Total score: 0 PHQ-9 3. Trouble falling or staying asleep, or sleeping too much: Not at all 4. Feeling tired or having little energy: Not at all 5. Poor appetite or overeating: Not at all 6. Feeling bad about yourself - or that you are a failure or have let yourself or your family down: Not at all 7. Trouble concentrating on things, such as reading the newspaper or watching television: Not at all 8. Moving or speaking so slowly that other people could have noticed? - Or the opposite - being so fidgety or restless that you have been moving around a lot more than usual: not at all 9. Thoughts that you would be better off or of hurting yourself in some way: Not at all Total score: 0 Source: Developed by Drs. Shamir White, Anahi Roque, Lito Yu and colleagues, with an educational annabel from [employer]. Depression screen completed yes Social History Living Situation History Lives With: Family Housing: House Tobacco History Smoking Status: Never smoker Second Hand Smoke Exposure: No Alcohol History Alcohol Intake: Never Domestic Abuse History Do You Feel Safe at Home: Yes Care OB Visit Log OB Flowsheet Initial Weight: Not Recorded Date -?-?-?-?-?-?-?-?-?-?-?-?- EGA Weight BP Alb Glu CTX Pres Fundal ht FHR Mov Dilation Station Effacement Hx Notes Visit Note 12/03/24 -?-?-?-?-?-?-?-?-?-?-?-?- 29w 4d 92.76 kg 110/67 absent unknown 29 134 active 29-year-old 3 para 2 for OBI. She brought partial records. Last period was May 10, 2024. An estimated due date based on that February 15, 2025. Patient reports movement. Denies bleeding, leaking, contractions. Treated for UTI with . Patient declined Tdap Schedule MFM appointment for anatomy scan. 1 hour glucose with OB panel today. Discussed labor precautions. Continue prenatals. Patient needs NIPT and carrier screens at her next visit 12/21/24 -?-?-?-?-?--?-?-?-?-?-?-?- 32w 1d 94.064 kg 104/69 absent cephalic 32 145 active Reports good movement. Denies leaking, bleeding, contractions. Patient has her MFM appointment scheduled for December 29. Tdap today. Discussed labor precautions. Discussed diet and weight. Increase fluids. Keep maternal- medicine sono appointment for December 29. Return in 2 weeks OB check, 3 hr gtt 01/04/25 -?-?-?-?-?-?-?-?-?-?-?-?- 34w 1d 94.12 kg 116/76 occasional cephalic 34 145 active Reports good movement. Denies labor complaints. Denies leaking, bleeding, contractions. Discussed ultras ound findings with patient. Patient will go tomorrow to repeat 3-hour GTT. Patient scheduled for repeat NST BPP tomorrow. Discussed labor precautions. Discussed kick count and activity. Discussed dates. Patient will return in a week for GBS. 01/12/25 -?-?-?-?-?-?-?-?-?-?-?-?- 35w 2d 93.894 kg 111/71 occasional cephalic 35 140 active 01/11 DIMA: 7.2, EFW 96% 01/11 DIMA: 7.2, nst reactive. EFW 96%. Reports good movement. Denies leaking, bleeding, contractions GBS today. Patient has NST BPP on Saturday. Reviewed labor precautions and kick count twice a day. Discussed danger signs symptoms and ER precautions. Force fluids. Return in a week OB check GBS today. Patient has NST BPP on Saturday. Reviewed labor precautions and kick count twice a day. Discussed danger signs symptoms and ER precautions. Force fluids. Return in a week OB check, IOL 01/26 GBS today. Patient has NST BPP on Saturday. Reviewed labor precautions and kick count twice a day. Discussed danger signs symptoms and ER precautions. Force fluids. Return in a week OB check, IOL 01/26. Disability starting 01/12/25 due to . VIVIAN Calculator Estimated Delivery Date Method Current WG Current Estimate 02/14/25 Ultrasound #2 35w 3d Other Estimates 02/14/25 LMP (Certain) 35w 3d 02/14/25 Ultrasound #1 35w 3d 02/14/25 Manual 35w 3d final vivian Notes Visit Date: 01/04/25 Last Updated by: Lydia Couch CNM [facility] sono12/29/24: IUP: 33w2.DIMA; 4.3. EFW: 96%. f/u sono 12/30: after IV hydration: DIMA:10 NIPT: neg/male Visit Date: 12/21/24 Last Updated by: Lydia Couch CNM 1 hr gtt: 143, HBSAG: -, HCV-, HIV-, GC/CT-, AB+. abs-, RPR::NR, RUB NI< 12/36/268A1: 5.4 Visit Date: 12/03/24 Last Updated by: Lydia Couch CNM 29 yo . LMP; 05/10/24. EDC: 02/15/25 Office Procedures [facility] LOC & Office Proc's Nursing/Assessment Patient Status: Established Patient [facility] Nursing Assessment: Medication Reconciliation, Update PMH in EMR and V ital Signs OB Clinic Coordination of Care: Complex Care and Chronic Disease 1-5, Consent,records obtained, informed consent, Education Simp Pt/Fam, 1 Ins Authorization, Lab and Imaging orders, Results/Orders obtained and Staff clarify orders Special Needs: Heart tones Miscellaneous Interventions: Culture Specimen Collection Established Patient Charge Established Patient Point Assignment: 165 Established Patient Point Charge: EP Level 5 (160-above) Assessment & Plan Diagnosis / Problem List (1) Encounter for supervision of high risk in third trimester, antepartum: Status: Acute (2) Oligohydramnios antepartum: Status: Acute Qualifiers: Fetus number: single or unspecified fetus Qualified Code(s): O41.00X0 - Oligohydramnios, unspecified trimester, not applicable or unspecified Plan Induction of labor scheduled for January 26. Increase fluids and hydration. Increase rest on right or left side. Discussed kick count twice a day. Continue biweekly NST BPP. Patient has a follow-up ultrasound for . I discussed labor precautions and kick count with patient. And patient will follow-up for induction on January 26 Additional Plan Follow Up: 1 Week (obc)
[2025-01-12 10:38] VITALS: BP 111/71; PULSE 93; RESP 18; TEMP 36.5; O2SAT 97; BMI 39.1
== END 2025-01-12 10:53 | disposition home or self-care (01) ==
LOC: HODSOBC 09:39
PROVIDERS: Supervising Provider Advanced Practice Midwife; Visit Provider Advanced Practice Midwife
DX: O09.893 Supervision of other high risk pregnancies, third trimester (principal); O41.03X0 Oligohydramnios, third trimester, not applicable or unspecified; Z3A.35 35 weeks gestation of pregnancy
CPT/HCPCS: 99215; G0463

== ENCOUNTER 2025-01-18 08:46 | Outpatient (CLI) | payer MEDICAID, SELFPAY ==
[2025-01-18 08:48] VITALS: BMI 39.8
--- NOTE | 2025-01-18 08:49 | XR_ITS ---
Examination: Biophysical profile, ultrasound Date and time of exam: January 18, 2025, 0850 hours INDICATIONS: History low amniotic fluid, 7.2 cm on ultrasound January 11, 2025 Technique: Multiple transabdominal sonographic images of the pelvis abdomen obtained. Attention is directed to the breathing movement, gross body movement, amniotic fluid volume and tone. Findings: Amniotic fluid index 9.0 cm Total biophysical profile is 8 of 8. breathing movement is 2. Gross body movement is 2. tone is 2. Qualitative amniotic fluid volume is 2 Impression: Biophysical profile is 8 of 8.
[2025-01-18 09:16] VITALS: BP 108/66; PULSE 87
[2025-01-18 09:17] VITALS: BP 108/66; PULSE 87; RESP 18; RESP 99; TEMP 36.8
== END 2025-01-18 09:50 | disposition home or self-care (01) ==
LOC: S4S1 08:46 → S4SX 08:47
PROVIDERS: Referring Provider Advanced Practice Midwife; Visit Provider Advanced Practice Midwife
DX: Z34.83 Encounter for supervision of other normal pregnancy, third trimester (principal); Z36.9 Encounter for antenatal screening, unspecified; Z3A.36 36 weeks gestation of pregnancy
CPT/HCPCS: 59025; 76819

== ENCOUNTER 2025-01-20 11:28 | Outpatient (AMB) | payer MEDICAID, SELFPAY ==
[2025-01-20 11:39] VITALS: BP 107/73; PULSE 99; RESP 18; TEMP 36.6; O2SAT 98; BMI 39.2
--- NOTE | 2025-01-20 11:39 | OBCLNT_ITS ---
Vital Signs 01/20/25 11:39 Height 1.55 m Height Method Stated Weight 94.12 kg Weight Measurement Method Standing Scale BMI 39.2 BP 107/73 Blood Pressure Source Automatic Cuff Blood Pressure Location Left Upper Arm Position Sitting Respiration 18 Pulse 99 Pulse Source Monitor Temp 97.8 F Temp Source Oral Pulse Oximetry (%) 98 Oxygen Delivery Method Room Air Allergies/Home Meds Allergies & Medications Allergies No Known Allergies Allergy (Verified 01/20/25 11:40) Medication Reconciliation vit no.95-ferrous fumarate 28 mg-folic acid 800 mcg tablet () 1 tab PO DAILY 01/05/25 [History Confirmed 01/20/25] Intake Visit Data Collection New Patient or Established: Established Patient (seen at [facility] within 3 years) Reason for Visit:: CARE Seen by Clinical Staff ONLY (RN/MA): No Parking Inspector Required: No Do You Feel Safe at Home: Yes Authorities Contacted: N/A PCP or OBGYN visit in last 3 months: Yes Hx Now: Yes Are you currently on any form of Control: No Pain Present Currently: No Pain Scale Used: Germain-Pérez/Numerical Pain scale:: 0 Smoking Status Smoking Status: Never smoker Questionnaires Covid-19 Vaccine Questionnaire Has patient been vacinated for Covid-19 Have you been vacinated for Covid-19: No PHQ-9 PHQ-2 Over the last 2 weeks, how often have you been bothered by any of the following problems? 1. Little interest or pleasure in doing things: not at all 2. Feeling down, depressed, or hopeless: not at all Total score: 0 PHQ-9 3. Trouble falling or staying asleep, or sleeping too much: Not at all 4. Feeling tired or having little energy: Not at all 5. Poor appetite or overeating: Not at all 6. Feeling bad about yourself - or that you are a failure or have let yourself or your family down: Not at all 7. Trouble concentrating on things, such as reading the newspaper or watching television: Not at all 8. Moving or speaking so slowly that other people could have noticed? - Or the opposite - being so fidgety or restless that you have been moving around a lot more than usual: not at all 9. Thoughts that you would be better off or of hurting yourself in some way: Not at all Total score: 0 Source: Developed by Drs. Shamir White, Anahi Roque, Lito Yu and colleagues, with an educational annabel from [employer]. Depression screen completed yes Social History Living Situation History Lives With: Family Housing: House Tobacco History Smoking Status: Never smoker Second Hand Smoke Exposure: No Alcohol History Alcohol Intake: Never Domestic Abuse History Do You Feel Safe at Home: Yes Care OB Visit Log OB Flowsheet Initial Weight: Not Recorded Date -?-?-?-?-?-?-?-?-?-?-?-?- EGA Weight BP Alb Glu CTX Pres Fundal ht FHR Mov Dilation Station Effacement Hx Notes Visit Note 12/03/24 -?-?-?-?-?-?-?-?-?-?-?-?- 29w 4d 92.76 kg 110/67 absent unknown 29 134 active 29-year-old 3 para 2 for OBI. She brought partial records. Last period was May 10, 2024. An estimated due date based on that February 15, 2025. Patient reports movement. Denies bleeding, leaking, contractions. Treated for UTI with . Patient declined Tdap Schedule MFM appointment for anatomy scan. 1 hour glucose with OB panel today. Discussed labor precautions. Continue prenatals. Patient needs NIPT and carrier screens at her next visit 12/21/24 -?-?-?-?-?-?-?-?-?-?-?-?- 32w 1d 94.064 kg 104/69 absent cephalic 32 145 active Reports good movement. Denies leaking, bleeding, contractions. Patient has her MFM appo intment scheduled for December 29. Tdap today. Discussed labor precautions. Discussed diet and weight. Increase fluids. Keep maternal- medicine sono appointment for December 29. Return in 2 weeks OB check, 3 hr gtt 01/04/25 -?-?-?-?-?-?-?-?-?-?-?-?- 34w 1d 94.12 kg 116/76 occasional cephalic 34 145 active Reports good movement. Denies labor complaints. Denies leaking, bleeding, contractions. Discussed ultras ound findings with patient. Patient will go tomorrow to repeat 3-hour GTT. Patient scheduled for repeat NST BPP tomorrow. Discussed labor precautions. Discussed kick count and activity. Discussed dates. Patient will return in a week for GBS. 01/12/25 -?-?-?-?-?-?-?-?-?-?-?-?- 35w 2d 93.894 kg 111/71 occasional cephalic 35 140 active 01/11 DIMA: 7.2, EFW 96% 01/11 IDMA: 7.2, nst reactive. EFW 96%. Reports good movement. Denies leaking, bleeding, contractions GBS today. Patient has NST BPP on Saturday. Reviewed labor precautions and kick count twice a day. Discussed danger signs symptoms and ER precautions. Force fluids. Return in a week OB check GBS today. Patient has NST BPP on Saturday. Reviewed labor precautions and kick count twice a day. Discussed danger signs symptoms and ER precautions. Force fluids. Return in a week OB check, IOL 01/26 GBS today. Patient has NST BPP on Saturday. Reviewed labor precautions and kick count twice a day. Discussed danger signs symptoms and ER precautions. Force fluids. Return in a week OB check, IOL 01/26. Disability starting 01/12/25 due to . 01/20/25 -?-?-?-?-?-?-?-?-?-?-?-?- 36w 3d 94.12 kg 107/73 occasional cephalic 35 135 active 1 -3 50 AF I increased to over 10. NST reactive. Denies leaking, bleeding. Occasional contraction. Reports good movement Discussed GBS results. Weekly NST and BPP. Discussed signs symptoms of labor and danger signs symptoms. Increase fluids. Kick count twice a day. Return in a week OB check. iol next Saturday VIVIAN Calculator Estimated Delivery Date Method Current WG Current Estimate 02/14/25 Ultrasound #2 36w 3d Other Estimates 02/14/25 LMP (Certain) 36w 3d 02/14/25 Ultrasound #1 36w 3d 02/14/25 Manual 36w 3d final vivian Notes Visit Date: 01/20/25 Last Updated by: Lydia Couch CNM 01/20/25, GBS- Visit Date: 01/04/25 Last Updated by: Lydia Couch CNM [facility] sono12/29/24: IUP: 33w2.DIMA; 4.3. EFW: 96%. f/u sono 12/30: after IV hydration: DIMA:10 NIPT: neg/male Visit Date: 12/21/24 Last Updated by: Lydia Couch CNM 1 hr gtt: 143, HBSAG: -, HCV-, HIV-, GC/CT-, AB+. abs-, RPR::NR, RUB NI< 12/36/268A1: 5.4 Visit Date: 12/03/24 Last Updated by: Lydia Couch CNM 29 yo . LMP; 05/10/24. EDC: 02/15/25 Office Procedures OBC Clinic LOC & Office Proc's Nursing/Assessment Patient Status: Established Patient OB Clinic Nursing Assessment: Medication Reconciliation, Update PMH in EMR and Vital Signs OB Clinic Coordination of Care: Complex Care and Chronic Disease 1-5, Consent,records obtained, informed consent, Education Simp Pt/Fam, 1 Ins Authorization, Lab and Imaging orders, Results/Orders obtained and Staff clarify orders Special Needs: Heart tones Established Patient Charge Established Patient Point Assignment: 150 Established Patient Point Charge: EP Level 4 (120-155) Assessment & Plan Diagnosis / Problem List (1) Oligohydramnios antepartum: Status: Acute Qualifiers: Fetus number: single or unspecified fetus Qualified Code(s): O41.00X0 - Oligohydramnios, unspecified trimester, not applicable or unspecified (2) Encounter for supervision of high risk in third trimester, antepartum: Status: Acute Plan Kick count twice a day. Continue weekly NST BPP. Patient is scheduled for induction of labor next Saturday. Reviewed labor precautions. Increase fluids. Return in 1 week for OB check if patient does not get in for delivery Additional Plan Follow Up: 1 Week (obc)
== END 2025-01-20 11:56 | disposition home or self-care (01) ==
LOC: HODSOBC 11:28
PROVIDERS: Supervising Provider Advanced Practice Midwife; Visit Provider Advanced Practice Midwife
DX: O09.893 Supervision of other high risk pregnancies, third trimester (principal); Z3A.37 37 weeks gestation of pregnancy; O41.03X0 Oligohydramnios, third trimester, not applicable or unspecified
CPT/HCPCS: 99214; G0463

== ENCOUNTER 2025-01-27 10:14 | Outpatient (RCR) | payer MEDICAID, SELFPAY ==
--- NOTE | 2025-01-20 10:14 | XR_ITS ---
Examination: Biophysical profile, ultrasound Date and time of exam: January 20, 2025, 1022 hours INDICATIONS: Low amniotic fluid January 08, 2025, 4.6 cm Technique: Multiple transabdominal sonographic images of the pelvis abdomen obtained. Attention is directed to the breathing movement, gross body movement, amniotic fluid volume and tone. Findings: Amniotic fluid index 11.7 cm Total biophysical profile is 8 of 8. breathing movement is 2. Gross body movement is 2. tone is 2. Qualitative amniotic fluid volume is 2 Impression: Biophysical profile is 8 of 8.
[2025-01-20 11:07] VITALS: BP 115/68; PULSE 86; RESP 16; TEMP 37.1
--- NOTE | 2025-01-27 10:29 | XR_ITS ---
Examination: Biophysical profile, ultrasound Date and time of exam: January 27 2025, 1037 hours INDICATIONS: History low amniotic fluid, 4.6 cm on January 08, 2025 Technique: Multiple transabdominal sonographic images of the pelvis abdomen obtained. Attention is directed to the breathing movement, gross body movement, amniotic fluid volume and tone. Findings: Amniotic fluid index 11.0 cm Total biophysical profile is 8 of 8. breathing movement is 2. Gross body movement is 2. tone is 2. Qualitative amniotic fluid volume is 2 Impression: Biophysical profile is 8 of 8.
[2025-01-27 10:55] VITALS: BP 98/62; PULSE 90; RESP 20
== END 2025-01-27 23:59 | disposition home or self-care (01) ==
LOC: S4S1 10:14
PROVIDERS: PCP Registered Nurse Community Health; Referring Provider Advanced Practice Midwife; Visit Provider Advanced Practice Midwife
DX: O41.03X0 Oligohydramnios, third trimester, not applicable or unspecified (principal); O09.93 Supervision of high risk pregnancy, unspecified, third trimester; Z3A.37 37 weeks gestation of pregnancy
CPT/HCPCS: 59025; 76819

== ENCOUNTER 2025-01-29 14:00 | Outpatient (AMB) | payer MEDICAID, SELFPAY ==
[2025-01-29 14:19] VITALS: BP 115/74; PULSE 100; RESP 18; TEMP 36.2; O2SAT 97; BMI 40.1
--- NOTE | 2025-01-29 14:19 | AMB.OBVISIT ---
Vital Signs 01/29/25 14:19 Height 1.55 m Height Method Stated Weight 96.332 kg Weight Measurement Method Standing Scale BMI 40.1 BP 115/74 Blood Pressure Source Automatic Cuff Blood Pressure Location Left Upper Arm Position Standing Respiration 18 Pulse 100 Pulse Source Monitor Temp 97.2 F Temp Source Oral Pulse Oximetry (%) 97 Oxygen Delivery Method Room Air Allergies/Home Meds Allergies & Medications Allergies No Known Allergies Allergy (Verified 01/29/25 14:19) Medication Reconciliation vit no.95-ferrous fumarate 28 mg-folic acid 800 mcg tablet () 1 tab PO DAILY 01/05/25 [History Confirmed 01/29/25] Intake Visit Data Collection New Patient or Established: Established Patient (seen at [facility] within 3 years) Reason for Visit:: OBC Seen by Clinical Staff ONLY (RN/MA): No Payroll And Benefits Manager Required: No Do You Feel Safe at Home: Yes Authorities Contacted: N/A PCP or OBGYN visit in last 3 months: Yes Date of Last PCP or OBGYN visit: 01/27/25 Hx Now: Yes Are you currently on any form of Control: No Pain Present Currently: No Pain Scale Used: Germain-Pérez/Numerical Pain scale:: 0 Smoking Status Smoking Status: Never smoker Immunizations Flu Vaccine in the Last 12 Months: No Flu Vaccine Exclusion Criteria: Refused by Patient Questionnaires Covid-19 Vaccine Questionnaire Has patient been vacinated for Covid-19 Have you been vacinated for Covid-19: No PHQ-9 PHQ-2 Over the last 2 weeks, how often have you been bothered by any of the following problems? 1. Little interest or pleasure in doing things: not at all 2. Feeling down, depressed, or hopeless: not at all Total score: 0 PHQ-9 3. Trouble falling or staying asleep, or sleeping too much: Not at all 4. Feeling tired or having little energy: Not at all 5. Poor appetite or overeating: Not at all 6. Feeling bad about yourself - or that you are a failure or have let yourself or your family down: Not at all 7. Trouble concentrating on things, such as reading the newspaper or watching television: Not at all 8. Moving or speaking so slowly that other people could have noticed? - Or the opposite - being so fidgety or restless that you have been moving around a lot more than usual: not at all 9. Thoughts that you would be better off or of hurting yourself in some way: Not at all Total score: 0 If you checked off any problems, how difficult have these problems made it for you to do your work, take care of things at home, or get along with other people?: not difficult at all Source: Developed by Drs. Shamir White, Anahi Roque, Lito Yu and colleagues, with an educational annabel from [employer]. Depression screen completed yes Social History Living Situation History Lives With: Family Housing: House Tobacco History Smoking Status: Never smoker Second Hand Smoke Exposure: No Alcohol History Alcohol Intake: Never Domestic Abuse History Do You Feel Safe at Home: Yes Care OB Visit Log OB Flowsheet Initial Weight: Not Recorded Date <del>?</del> EGA Weight BP Alb Glu CTX Pres Fundal ht FHR Mov Dilation Station Effacement Hx Notes Visit Note 12/03/24 <del>?</del> 29w 4d 92.76 kg 110/67 absent unknown 29 134 active 29-year-old 3 para 2 for OBI. She brought partial records. Last period was May 10, 2024. An estimated due date based on that February 15, 2025. Patient reports movement. Denies bleeding, leaking, contractions. Treated for UTI with . Patient declined Tdap Schedule MFM appointment for anatomy scan. 1 hour glucose with OB panel today. Discussed labor precautions. Continue prenatals. Patient needs NIPT and carrier screens at her next visit 12/21/24 <del>?</del> 32w 1d 94.064 kg 104/69 absent cephalic 32 145 active Reports good movement. Denies leaking, bleeding, contractions. Patient has her MFM appointment scheduled for December 29. Tdap today. Discussed labor precautions. Discussed diet and weight. Increase fluids. Keep maternal- medicine sono appointment for December 29. Return in 2 weeks OB check, 3 hr gtt 01/04/25 <del>?</del> 34w 1d 94.12 kg 116/76 occasional cephalic 34 145 active Reports good movement. Denies labor complaints. Denies leaking, bleeding, contractions. Discussed ultrasound findings with patient. Patient will go tomorrow to repeat 3-hour GTT. Patient scheduled for repeat NST BPP tomorrow. Discussed labor precautions. Discussed kick count and activity. Discussed dates. Patient will return in a week for GBS. 01/12/25 <del>?</del> 35w 2d 93.894 kg 111/71 occasional cephalic 35 140 active 01/11 DIMA: 7.2, EFW 96% 01/11 DIMA: 7.2, nst reactive. EFW 96%. Reports good movement. Denies leaking, bleeding, contractions GBS today. Patient has NST BPP on Saturday. Reviewed labor precautions and kick count twice a day. Discussed danger signs symptoms and ER precautions. Force fluids. Return in a week OB check GBS today. Patient has NST BPP on Saturday. Reviewed labor precautions and kick count twice a day. Discussed danger signs symptoms and ER precautions. Force fluids. Return in a week OB check, IOL 01/26 GBS today. Patient has NST BPP on Saturday. Reviewed labor precautions and kick count twice a day. Discussed danger signs symptoms and ER precautions. Force fluids. Return in a week OB check, IOL 01/26. Disability starting 01/12/25 due to . 01/20/25 <del>?</del> 36w 3d 94.12 kg 107/73 occasional cephalic 35 135 active 1 -3 50 AF I increased to over 10. NST reactive. Denies leaking, bleeding. Occasional contraction. Reports good movement Discussed GBS results. Weekly NST and BPP. Discussed signs symptoms of labor and danger signs symptoms. Increase fluids. Kick count twice a day. Return in a week OB check. iol next Saturday01/29/25 <del>?</del> 37w 5d 96.332 kg 115/74 occasional cephalic 37 135 active 1 -3 50 On Saturday NST was reactive 8 out of 8. DIMA was 11. Reports good movement. Denies leaking or bleeding. Occasional contraction Discussed NST BPP. Reviewed labor precautions and kick count twice a day. Discussed danger signs symptoms. Return in a week OB check Discussed NST BPP. Reviewed labor precautions and kick count twice a day. Discussed danger signs symptoms. Return in a week OB check. Patient is scheduled for induction since Saturday. She is waiting for a bed. I called labor and delivery and because of activity no maybe bring her in [employer] VIVIAN Calculator Estimated Delivery Date Method Current WG Current Estimate 02/14/25 Ultrasound #2 37w 5d Other Estimates 02/14/25 LMP (Certain) 37w 5d 02/14/25 Ultrasound #1 37w 5d 02/14/25 Manual 37w 5d final vivian Notes Visit Date: 01/20/25 Last Updated by: Lydia Couch CNM 01/20/25, GBS- Visit Date: 01/04/25 Last Updated by: Lydia Couch CNM mfm sono12/29/24: IUP: 33w2.DIMA; 4.3. EFW: 96%. f/u sono 12/30: after IV hydration: DIMA:10 NIPT: neg/male Visit Date: 12/21/24 Last Updated by: Lydia Couch CNM 1 hr gtt: 143, HBSAG: -, HCV-, HIV-, GC/CT-, AB+. abs-, RPR::NR, RUB NI< 12/36/268A1: 5.4 Visit Date: 12/03/24 Last Updated by: Lydia Couch CNM 29 yo . LMP; 05/10/24. EDC: 02/15/25 Office Procedures OBC Clinic LOC & Office Proc's Nursing/Assessment Patient Status: Established Patient OB Clinic Nursing Assessment: Medication Reconciliation, Update PMH in EMR and Vital Signs OB Clinic Coordination of Care: Consent,records obtained, informed consent, Education Simp Pt/Fam, Lab and Imaging orders, Results/Orders obtained and Staff clarify orders Special Needs: Heart tones Established Patient Charge Established Patient Point Assignment: 110 Established Patient Point Charge: EP Level 3 (80-115) Assessment & Plan Diagnosis / Problem List (1) Oligohydramnios antepartum: Status: Acute Qualifiers: Fetus number: single or unspecified fetus Qualified Code(s): O41.00X0 - Oligohydramnios, unspecified trimester, not applicable or unspecified (2) Encounter for supervision of high risk in third trimester, antepartum: Status: Acute Plan Discussed labor precautions. Kick count twice a week. Continue weekly NST BPP. [place] danger signs symptoms and ER precautions. Return in a week OB check patient is scheduled for induction waiting for a bed Additional Plan Follow Up: 1 Week (obc)
== END 2025-01-29 14:56 | disposition home or self-care (01) ==
LOC: HODSOBC 14:00
PROVIDERS: Supervising Provider Advanced Practice Midwife; Visit Provider Advanced Practice Midwife
DX: O09.893 Supervision of other high risk pregnancies, third trimester (principal); O41.03X0 Oligohydramnios, third trimester, not applicable or unspecified; Z3A.37 37 weeks gestation of pregnancy
CPT/HCPCS: 99213; G0463

== ENCOUNTER 2025-01-30 09:34 | Inpatient (IN) | payer MEDICAID, SELFPAY ==
--- NOTE | 2025-01-26 07:39 | PC.NURSE ---
Phone call received from patient regarding bed availability for IOL due to oligo, patient made aware of no beds at this moment, states has an appt for an NST and BPP tomorrow, instructed to keep appt for and if DIMA is low she will stay for IOL. Labor precautions and kick counts discussed, advised to come into triage with signs of active labor. Patient verbalized understanding.
--- NOTE | 2025-01-29 14:55 | PC.NURSE ---
MEJIA BERRY ON PHONE, STATES HAS PT IN OFFICE NOW, INFORMED OF NO BEDS AVAILABLE FOR IOL, INFORMED OF MAY POSSIBLY BE CALLED LATER TONIGHT
--- NOTE | 2025-01-30 08:11 | PC.NURSE ---
CALLED PT, ASKED PT TO COME IN FOR IOL, PT STATES IS DROPPING OFF CHILDREN WITH [facility], PACKING HER THINGS AND WILL BE HERE WITHIN THE NEXT HOUR
[2025-01-30 09:41] VITALS: BMI 40.0
[2025-01-30 09:50] VITALS: BP 103/62; PULSE 90
[2025-01-30] MEDS: RINGERS LACTATED 1000 ML 1,000 ML 100 ML IV ×2 (10:02→23:51)
[2025-01-30 10:25] LABS: Basophils # (Auto) 0.0 Thou/mm3 (0.0-0.2); Basophils % (Auto) 0 % (0-2.5); Eosinophils # (Auto) 0.0 Thou/mm3 (0.0-0.5); Eosinophils % (Auto) 1 % (0-10); Hematocrit 35.3 % (36.0-46.0); Hemoglobin 12.0 g/dL (12.0-16.0); Immature Granulocytes Auto 0.03 Thou/mm3 (0.00-0.00); Lymphocytes # (Auto) 2.0 Thou/mm3 (1.0-4.8); Lymphocytes % (Auto) 25 % (10-50); Mean Corpuscular HGB Conc 34.0 g/dl (31.0-37.0); Mean Corpuscular Hemoglobin 27.9 pg (25.0-35.0); Mean Corpuscular Volume 82 fL (80-100); Monocytes # (Auto) 0.8 Thou/mm3 (0.0-0.8); Monocytes % (Auto) 10 % (0-12); Neutrophils # (Auto) 5.2 Thou/mm3 (1.8-7.7); Neutrophils % (Auto) 64 % (37-80); Nucleated Red Blood Cell # 0.00 Thou/mm3 (0.00-0.00); Nucleated Red Blood Cell % 0 /100 WBC (0); Platelet Count 301 Thou/mm3 (140-440); RDW Standard Deviation 40.7 fL (36.4-46.3); Red Blood Count 4.30 Miln/mm3 (4.00-5.20); White Blood Count 8.2 Thou/mm3 (3.6-11.0)
--- NOTE | 2025-01-30 10:31 | XR_ITS ---
EXAMINATION: age Limited TECHNIQUE: Limited transabdominal sonographic images pelvis Date and time: January 30, 2025, 1157 hours INDICATIONS: Labor evaluation, unknown presentation. FINDINGS: Viable intrauterine gestation in cephalic presentation. spine anterior. Cervix 4.5 cm. Estimated weight 3587 g. Amniotic fluid index 8.4 cm Cardiac motion 136 bpm. Estimated gestational age 38 weeks 6 days IMPRESSION: Viable intrauterine gestation in cephalic presentation
[2025-01-30 11:12] LABS: Syphilis Nonreactive (Nonreactive)
--- NOTE | 2025-01-30 11:34 | PD.LDHP ---
Documentation for date of: 01/30/25 OB Labor/Induct. HPI History of Present Illness Chief complaint: IOL for low DIMA / also GDM : 3 Term pregnancies: 2 pregnancies: 0 Living children: 2 History of Abortions: Spontaneous and Elective: 0 History of sections: No History of : No Date of last menstrual period: 05/10/24 VIVIAN: 02/14/25 Gestational age based on last menstrual period: 37 Indication for induction: medical complication Labs Maternal Blood Type: AB Pos Labs: Negative: RPR, Hepatitis B, Rubella Titre, HIV, Chlamydia and Gonorrhea and Unknown: Herpes Type 1, Herpes Type 2, Group Beta Strep and Covid-19 Review of Systems Review of Systems Systems Reviewed: All systems reviewed, normal except as documented Past Medical History Surgical History SURGICAL: Negative Section Meds Home Medications and Allergies Home Medications ?Medication ?Instructions ?Recorded ?Confirmed ?Type vit no.95-ferrous 1 tab PO DAILY 01/05/25 01/30/25 History fumarate 28 mg-folic acid 800 mcg tablet () Allergies Allergy/AdvReac Type Severity Reaction Status Date / Time No Known Allergies Allergy Verified 01/30/25 09:41 OB Exam Physical Exam Vital signs: Pulse BP 90 103/62 01/30/25 09:50 01/30/25 09:50 Narrative: 29 years old here for IOL for indication oligohydramnios reviewed history/ records that are available Labs abnormal as listed / she has GDM on diet control dating by LMP and a second trimester MFM US US care with Ramon Couch CNM - years old G- P- here in labor / for IOL for indication reviewed history/ records that are available Labs as listed On uterus is S = D presentationvertex but US ordered FHTones cat 1 contractions none GBS is ? OB Results Labs 01/30/25 09:55 Labs: Short CBC 01/30/25 Range/Units 09:55 WBC 8.2 (3.6-11.0) Thou/mm3 Hgb 12.0 (12.0-16.0) g/dL Hct 35.3 L (36.0-46.0) % Plt Count 301 (140-440) Thou/mm3 Impressions Impression: Induction of labor / ramon plans on taking over care of her patient OB Assessment & Plan Assessment and Plan (1) Encounter for supervision of high risk in third trimester, antepartum: Status: Acute (2) Oligohydramnios antepartum: Status: Acute (3) Encounter for induction of labor: Status: Acute (2) Oligohydramnios antepartum Qualifiers: Fetus number: single or unspecified fetus Qualified Code(s): O41.00X0 - Oligohydramnios, unspecified trimester, not applicable or unspecified
[2025-01-30 15:07] VITALS: BP 120/67; PULSE 82
[2025-01-30 15:17] VITALS: RESP 18; TEMP 36.8
[2025-01-30 19:11] VITALS: BP 124/66; PULSE 104
[2025-01-30 21:38] VITALS: BP 95/51; PULSE 99
[2025-01-31] VITALS (72 sets, daily range): BP systolic 93–182; BP diastolic 52–93; PULSE 74–113; RESP 16–20; TEMP 36.7–37.1; O2SAT 90–100
[2025-01-31] MEDS: RINGERS LACTATED 1000 ML 1,000 ML 100 ML IV (06:01)
--- NOTE | 2025-01-31 07:43 | PD.LDPN ---
Documentation for date of: 01/31/25 OB Labor Progress Note Pain Control Pain control: tolerating well Pelvic Exam Dilation (cm): 2.5 Effacement (%): 50 station: -4 Amniotic membrane status: Intact Contractions Monitor mode: External Contraction frequency: occasional, irregular Contraction pattern: Coupling Contraction intensity: Mild Status status: Category l Assessment and Plan Assessment: induction ongoing Plan OB labor note: continuous present management CNM Management MD Consulted (describe details below): Yes
[2025-01-31] MEDS: OXYTOCIN in NS 20 units 20 UNIT/1,000 ML BAG 125 UNIT IV (15:53)
[2025-01-31] MEDS: OXYTOCIN INJ 10 UNIT/ML VIAL IM (15:54)
[2025-01-31] MEDS: BENZO/LANO/ALOE (Dermoplast) 60 GM CAN 1 SPRAY TOP (16:08)
[2025-01-31] MEDS: TRANEXAMIC ACID 1,000 MG IVPB 1,000 MG/100 ML BAG 200 MG IV ×2 (16:09→17:20)
[2025-01-31] MEDS: IBUPROFEN TAB 400 MG TABLET 800 MG PO ×2 (16:20→20:00)
--- NOTE | 2025-01-31 16:25 | PD.LDDELS ---
Data ([facility]) Data Hx Section: No : 3 Term: 2 : 0 Livin Abortions: Spontaneous & Theraputic: 0 Delivery Data ([facility]) Labor Data Initiation of labor: Induction Induction/Augmentation Agent: Cytotec-PO and Cervidil ROM date: 01/31/25 ROM time: 13:02 Amniotic membrane rupture type: Spontaneous Amniotic fluid description: Clear Delivery Data EDC: 02/14/25 EDC calculated by:: ultrasound Date of arrival to unit: 01/30/25 Time of arrival to unit: 09:34 Onset of labor date: 01/31/25 Onset of labor time: 14:25 Complete dilation date: 01/31/25 Complete dilation time: 15:43 delivery date: 01/31/25 delivery time: 15:50 Gestational age (weeks): 38 Gestational age (days): 0 Placenta delivery date: 01/31/25 Placenta delivery time: 16:10 Stage 1 total time: Labor - Stage 1 Duration 1 hours and 18 minutes Delivered by: Sharon Delivery nurse: corin Ray nurse: Billy Director Of Professional Services at delivery: No Support person(s) at delivery: FOB Other staff at delivery: SANDI Garaypatient registration rep Method Delivery method: Normal Vaginal Delivery Presentation: Vertex position: OA Anesthesia Type Anesthesia Type: Epidural Delivery Room Medications Delivery room medications: Pitocin 10 u IM, Pitocin 20 u IV, Cytotec 800 ID and other (txa) Placenta Placenta delivery description: Spontaneous (inspected. intact) Cord blood sent to lab: Yes cord blood collection: Cord Blood Type Episiotomy Episiotomy description: None Lacerations #1: Labial: bilateral Perineal repair Sutures used for repair: 3.0 Vicryl EBL Estimated blood loss (ml): 400 Umbilical Cord cord description: 3 Vessels Data ([facility]) Data order: 1 [place]'s gender: Male Identification band number: [id number] weight (gms): 3805 g Weight (pounds): 8 lbs and 6.2 ozs length: 50.8 cm 1 minute: 8 5 minutes: 9
[2025-01-31] MEDS: ceFAZolin/D5W 2 GM IV 2 GM/100 ML BAG IV (16:45)
[2025-01-31] MEDS: DOCUSATE SOD 100 MG CAPSULE PO (20:00)
[2025-01-31 23:09] LABS: Basophils # (Auto) 0.0 Thou/mm3 (0.0-0.2); Basophils % (Auto) 0 % (0-2.5); Eosinophils # (Auto) 0.0 Thou/mm3 (0.0-0.5); Eosinophils % (Auto) 0 % (0-10); Hematocrit 37.2 % (36.0-46.0); Hemoglobin 12.5 g/dL (12.0-16.0); Immature Granulocytes Auto 0.07 Thou/mm3 (0.00-0.00); Lymphocytes # (Auto) 2.4 Thou/mm3 (1.0-4.8); Lymphocytes % (Auto) 15 % (10-50); Mean Corpuscular HGB Conc 33.6 g/dl (31.0-37.0); Mean Corpuscular Hemoglobin 28.0 pg (25.0-35.0); Mean Corpuscular Volume 83 fL (80-100); Monocytes # (Auto) 1.5 Thou/mm3 (0.0-0.8); Monocytes % (Auto) 9 % (0-12); Neutrophils # (Auto) 12.1 Thou/mm3 (1.8-7.7); Neutrophils % (Auto) 75 % (37-80); Nucleated Red Blood Cell # 0.00 Thou/mm3 (0.00-0.00); Nucleated Red Blood Cell % 0 /100 WBC (0); Platelet Count 263 Thou/mm3 (140-440); RDW Standard Deviation 41.1 fL (36.4-46.3); Red Blood Count 4.46 Miln/mm3 (4.00-5.20); White Blood Count 16.2 Thou/mm3 (3.6-11.0)
[2025-02-01] MEDS: ceFAZolin/D5W 2 GM IV 2 GM/100 ML BAG IV ×2 (00:08→06:35)
[2025-02-01 00:19] VITALS: BP 94/59; PULSE 72; RESP 15; TEMP 36.7; O2SAT 98
[2025-02-01 03:37] VITALS: BP 98/60; PULSE 64; RESP 16; TEMP 36.6; O2SAT 99
--- NOTE | 2025-02-01 08:39 | PD.LDPPPRG ---
Subjective Subjective Interval history: No complaints of pain. No dizziness. Bonding and. Baby had been in the NICU because of low blood sugars but the plan is to send the baby home in the afternoon Exam Vital Signs Temp Pulse Resp BP Pulse Ox O2 Del Method 97.9 F 64 16 98/60 99 Room Air 02/01/25 03:37 02/01/25 03:37 02/01/25 03:37 02/01/25 03:37 02/01/25 03:37 02/01/25 03:37 Narrative Exam Vital signs stable afebrile. Pressure soft. Fundus firm below umbilicus. Perineum intact no swelling. Small lochia. Uterus well involuted. Negative Homans' sign. 2+ DTRs Objective Labs 01/31/25 23:01 Labs: Laboratory Results - last 24 hr 01/31/25 23:01 WBC 16.2 H D RBC 4.46 Hgb 12.5 Hct 37.2 MCV 83 MCH 28.0 MCHC 33.6 RDW Std Deviation 41.1 Plt Count 263 D Neut % (Auto) 75 Lymph % (Auto) 15 [place] % (Auto) 9 Eos % (Auto) 0 Baso % (Auto) 0 Neut # (Auto) 12.1 H Lymph # (Auto) 2.4 [place] # (Auto) 1.5 H Eos # (Auto) 0.0 Baso # (Auto) 0.0 Immature Gran # (Auto) 0.07 H Absolute Nucleated RBC 0.00 Immature Gran % 0 Nucleated RBC % 0 Assessment & Plan Problem List (1) Encounter for supervision of high risk in third trimester, antepartum: Status: Acute (2) Oligohydramnios antepartum: Problem details: Repeat ultrasound performed and DIMA up to 4.8. Kick counts reviewed with patient. Follow-up Saturday for another NST and DIMA. Status: Acute (3) Encounter for induction of labor: Status: Acute Assessment Comment Assessment comment: 24 hr pp Plan Comment Plan Comment: Charge home with baby today. Continue vitamins and iron. Tylenol ibuprofen for pain. Danger signs. Return in 3 weeks visit. We discussed signs and symptoms of infection and ER precautions with parameters. Return in 3 weeks for check Time Spent With Patient Time: Total time spent is greater than 50% in coordination of care (as documented) at patient's floor/unit and/or counseling patient:
--- NOTE | 2025-02-01 08:40 | PD.LDDS ---
DS: Providers Provider Date of admission: 01/30/25 09:34 Primary care physician: Physician No Primary/Family Admitting Provider: Katelyn Cain MD Attending Provider on Admission: Lydia Couch CNM Consults: 01/31/25 17:24 Referral Routine Comment: Attending Provider on DC: Lydia Couch CNM Discharging Provider: Lydia Couch CNM DS: Diagnosis Problem List Completed Was Problem List Reviewed/Reconciled?: Yes Summary/Hosp Course Peripartum Data Delivery Method: Normal Vaginal Delivery Episiotomy Description: None Laceration Description: yes (labia bilat) complications: none Time Spent with Patient Time attestation: Total time spent providing and/or coordinating discharge services: Exam Vital Signs Temp Pulse Resp BP Pulse Ox O2 Del Method 97.9 F 64 16 98/60 99 Room Air 02/01/25 03:37 02/01/25 03:37 02/01/25 03:37 02/01/25 03:37 02/01/25 03:37 02/01/25 03:37 Discharge Plan Plan Patient Disposition: HOME (Self Care) Patient condition on transfer: Stable Prescriptions/Referrals Prescriptions/Med Rec: No Action PNV no.95-ferrous fumarate-FA [] 28 mg iron- 800 mcg tablet 1 tab PO DAILY Referrals: No Primary/Family,Physician [Primary Care Provider] Patient/Caregiver Discharge Instructions Meds to Beds: No Discharge Activity: resume usual activities Print Language: Tristanian Activity Restrictions/Additional Instructions: Discharge home with baby. Continue vitamins and iron. Tylenol ibuprofen for pain. Discussed danger signs symptoms and ER precautions. Discussed signs symptoms of infection. Increase fluids. May and return in 3 weeks for visit Stand Alone Forms: [employer] Award Info., Patient Portal Info Letter Discharge Order Discharge Orders: Discharge (Routine); Ordered 02/01/25 Ordered By: Lydia Couch Planned Discharge Date 02/01/25
[2025-02-01 08:50] VITALS: BP 107/71; PULSE 85; RESP 16; TEMP 36.8; O2SAT 96
[2025-02-01] MEDS: DOCUSATE SOD 100 MG CAPSULE PO (09:06)
[2025-02-01 12:10] VITALS: BP 117/73; PULSE 84; RESP 17; TEMP 36.6; O2SAT 97
[2025-02-01 15:50] VITALS: BP 107/70; PULSE 87; RESP 18; TEMP 36.9; O2SAT 97
== END 2025-02-01 16:35 | disposition home or self-care (01) | DRG 560 ==
LOC: S4SX 01-31 07:43 → S4NX 01-31 18:06
PROVIDERS: Admitting Provider Obstetrics & Gynecology; Visit Provider Advanced Practice Midwife
DX: O24.429 Gestational diabetes mellitus in childbirth, unspecified control (principal); O41.03X0 Oligohydramnios, third trimester, not applicable or unspecified; Z37.0 Single live birth; Z3A.37 37 weeks gestation of pregnancy
CPT/HCPCS: 36415; 59409; 76815; 85025; 86780; 86850; 86900; 86901; 94762; J0689; J2590; J2795; J3010; J3490; J7120; S0191; A9270

== ENCOUNTER 2025-03-16 13:34 | Outpatient (AMB) | payer MEDICAID, SELFPAY ==
[2025-03-16 13:55] VITALS: BP 109/71; PULSE 61; RESP 18; TEMP 36.4; O2SAT 96; BMI 37.0
--- NOTE | 2025-03-16 13:55 | AMBOBPPN_ITS ---
Vital Signs 03/16/25 13:55 Height 1.55 m Height Method Stated Weight 88.961 kg Weight Measurement Method Standing Scale BMI 37.0 BP 109/71 Blood Pressure Source Automatic Cuff Blood Pressure Location Right Upper Arm Position Sitting Respiration 18 Pulse 61 Pulse Source Monitor Temp 97.6 F Temp Source Temporal Artery Scan Pulse Oximetry (%) 96 Oxygen Delivery Method Room Air Allergies/Home Meds Allergies & Medications Allergies No Known Allergies Allergy (Verified 03/16/25 13:55) Medication Reconciliation vit no.95-ferrous fumarate 28 mg-folic acid 800 mcg tablet () 1 tab PO DAILY 01/05/25 [History Confirmed 03/16/25] Intake Visit Data Collection New Patient or Established: Established Patient (seen at [facility] within 3 years) Reason for Visit:: Seen by Clinical Staff ONLY (RN/MA): No Full Stack Net Developer Required: No Do You Feel Safe at Home: Yes Authorities Contacted: N/A PCP or OBGYN visit in last 3 months: Yes Date of Last PCP or OBGYN visit: 02/05/25 Hx Now: No Are you currently on any form of Control: No Pain Present Currently: No Pain Scale Used: Germain-Pérez/Numerical Pain scale:: 0 Smoking Status Smoking Status: Never smoker Immunizations Flu Vaccine in the Last 12 Months: No Flu Vaccine Exclusion Criteria: No 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 Medical History Past Medical History: No Hx Neurological Disorders, No Hx Cardiac Disorders, No Hx Cancer, No Hx Blood Disorders, No Hx Anemia, No Hx Gastrointestinal Disorders, No Hx Renal Disease, No Hx Diabetes Mellitus Type 1 and No Hx Diabetes Mellitus Type 2 Questionnaires Covid-19 Vaccine Questionnaire Has patient been vacinated for Covid-19 Have you been vacinated for Covid-19: No Social History Living Situation History Marital Status: Lives With: Family Housing: House Tobacco History Smoking Status: Never smoker Second Hand Smoke Exposure: No Alcohol History Alcohol Intake: Never Domestic Abuse History Do You Feel Safe at Home: Yes EPDS - PP Depression Screening [place] Pospartum Depression Screen I have been able to laugh and see the funny side of things: (0) As much as I always could I have looked forward with enjoyment to things: (0) As much as I ever did I have blamed myself unnecessarily when things went wrong: (0) No, never I have been anxious or worried for no good reason: (0) No, not at all I have felt scared or panicky for no very good reason: (0) No, not at all Things have been getting on top of me: (0) No, I have been coping as well as ever I have been so unhappy that I have had difficulty sleeping: (0) No, not at all I have felt sad or miserable: (0) No, not at all I have been so unhappy that I have been crying: (0) No, never The thought of harming myself has occurred to me: (0) Never Care OB Visit Log OB Flowsheet Initial Weight: Not Recorded Date -?-?-?-?-?-?-?-?-?-?-?-?- EGA Weight BP Alb Glu CTX Pres Fundal ht FHR Mov Dilation Station Effacement Hx Notes Visit Note 12/03/24 -?-?-?-?-?-?-?-?-?-?-?-?- 29w 4d 92.76 kg 110/67 absent unknown 29 134 active 29-year-old 3 para 2 for OBI. She brought partial records. Last period was May 10, 2024. An estimated due date based on that February 15, 2025. Patient reports movement. Denies bleeding, leaking, contractions. Treated for UTI with . Patient declined Tdap Schedule MFM appointment for anatomy scan. 1 hour glucose with OB panel today. Discussed labor precautions. Continue prenatals. Patient needs NIPT and carrier screens at her next visit 12/21/24 -?--?-?-?-?-?-?-?-?-?-?-?- 32w 1d 94.064 kg 104/69 absent cephalic 32 145 active Reports good movement. Denies leaking, bleeding, contractions. Patient has her MFM appointment scheduled for December 29. Tdap today. Discussed labor precautions. Discussed diet and weight. Increase fluids. Keep maternal- medicine sono appointment for December 29. Return in 2 weeks OB check, 3 hr gtt 01/04/25 -?-?-?-?-?-?-?-?-?-?-?-?- 34w 1d 94.12 kg 116/76 occasional cephalic 34 145 active Reports good movement. Denies labor complaints. Denies leaking, bleeding, contractions. Discussed ultras ound findings with patient. Patient will go tomorrow to repeat 3-hour GTT. Patient scheduled for repeat NST BPP tomorrow. Discussed labor precautions. Discussed kick count and activity. Discussed dates. Patient will return in a week for GBS. 01/12/25 -?-?-?-?-?-?-?-?-?-?-?-?- 35w 2d 93.894 kg 111/71 occasional cephalic 35 140 active 01/11 DIMA: 7.2, EFW 96% 01/11 DIMA: 7.2, nst reactive. EFW 96%. Reports good movement. Denies leaking, bleeding, contractions GBS today. Patient has NST BPP on Saturday. Reviewed labor precautions and kick count twice a day. Discussed danger signs symptoms and ER precautions. Force fluids. Return in a week OB check GBS today. Patient has NST BPP on Saturday. Reviewed labor precautions and kick count twice a day. Discussed danger signs symptoms and ER precautions. Force fluids. Return in a week OB check, IOL 01/26 GBS today. Patient has NST BPP on Saturday. Reviewed labor precautions and kick count twice a day. Discussed danger signs symptoms and ER precautions. Force fluids. Return in a week OB check, IOL 01/26. Disability starting 01/12/25 due to . 01/20/25 -?-?-?-?-?-?-?-?-?-?-?-?- 36w 3d 94.12 kg 107/73 occasional cephalic 35 135 active 1 -3 50 AF I increased to over 10. NST reactive. Denies leaking, bleeding. Occasional contraction. Reports good movement Discussed GBS results. Weekly NST and BPP. Discussed signs symptoms of labor and danger signs symptoms. Increase fluids. Kick count twice a day. Return in a week OB check. iol next Saturday01/29/25 -?-?-?-?-?-?-?-?-?-?-?-?- 37w 5d 96.332 kg 115/74 occasional cephalic 37 135 active 1 -3 50 On Saturday NST was reactive 8 out of 8. DIMA was 11. Reports good movement. Denies leaking or bleeding. Occasional contraction Discussed NST BPP. Reviewed labor precautions and kick count twice a day. Discussed danger signs symptoms. Return in a week OB check Discussed NST BPP. Reviewed labor precautions and kick count twice a day. Discussed danger signs symptoms. Return in a week OB check. Patient is sched uled for induction since Saturday. She is waiting for a bed. I called labor and delivery and because of activity no maybe bring her in [employer] VIVIAN Calculator Estimated Delivery Date Method Current WG Current Estimate 02/14/25 Ultrasound #2 44w 2d Other Estimates 02/14/25 LMP (Certain) 44w 2d 02/14/25 Ultrasound #1 44w 2d 02/14/25 Manual 44w 2d final vivian Notes Visit Date: 01/20/25 Last Updated by: Lydia Couch CNM 01/20/25, GBS- Visit Date: 01/04/25 Last Updated by: Lydia Couch CNM mfm sono12/29/24: IUP: 33w2.DIMA; 4.3. EFW: 96%. f/u sono 12/30: after IV hydration: DIMA:10 NIPT: neg/male Visit Date: 12/21/24 Last Updated by: Lydia Couch CNM 1 hr gtt: 143, HBSAG: -, HCV-, HIV-, GC/CT-, AB+. abs-, RPR::NR, RUB NI< 12/36/268A1: 5.4 Visit Date: 12/03/24 Last Updated by: Lydia Couch CNM 29 yo . LMP; 05/10/24. EDC: 02/15/25 HPI Interval History: 29-year-old 3 para 3 for 6-week . Patient had a vaginal January 31, 2025. A baby boy weighing 8 pounds 6 she is breast and bottlefeeding. She said she is very happy and has good help at home the siblings are all adjusting well. The father the baby is involved. Patient is not interested in control at this time they would like to try for another child right away. She has not started. She is not sexually active patient. 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 Lungs clear no wheezes. Abdomen is soft nontender. Uterus well involuted. Perineum is intact no lacerations. No swelling. Small lochia. Negative Homans' sign. 2+ DTRs. No edema no swelling. Breasts are soft Office Procedures [facility] Clinic LOC & Office Proc's Nursing/Assessment Patient Status: Established Patient OB Clinic Nursing Assessment: Medication Reconciliation, Update PMH in EMR and Vital Signs OB Clinic Coordination of Care: Complex Care and Chronic Disease 1-5, Education Complex Pt/Fam, Consent,records obtained, informed consent, Lab and Imaging orders, Results/Orders obtained and Staff clarify orders Established Patient Charge Established Patient Point Assignment: 110 Established Patient Point Charge: EP Level 3 (80-115) Antepartum Initial or Follow-up Antepartum Initial Visit: Yes Assessment & Plan Diagnosis / Problem List (1) 6 weeks follow-up: Status: Acute Plan Offered contraception. Patient declined discussed resumption of sex. Condoms as needed. Continue prenatals. Increase fluids. Okay to exercise and diet. Patient plans to take bonding after that so patient will be cleared to return to work Care Reviewed delivery summary and any complications: Yes Uterus involuted to: 3 below Perineal / incision healing noted: Yes Screened for depression: Yes Depression counseling provided: No Discussed family planning & contraception: Yes Contraception planned: none Counseling on safe resumption of sexual activity: Yes Counseling on gradual excercise: Yes Discussed and concerns (describe), provided support: Yes Referred to medical logistics specialist: No Counseled on good nutrition, hydration, and self care: Yes Reviewed vaccine status: No Chronic & current problems reconciled on problem list: Yes Infant care discussed; questions answered: feeding Follow up: routine/prn Additional counseling & anticipatory guidance provided: rtc as needed
== END 2025-03-16 14:17 | disposition home or self-care (01) ==
LOC: HODSOBC 13:34
PROVIDERS: Supervising Provider Advanced Practice Midwife; Visit Provider Advanced Practice Midwife
DX: Z39.2 Encounter for routine postpartum follow-up (principal); Z39.1 Encounter for care and examination of lactating mother
CPT/HCPCS: 59425; 99213; Z1034; G0463